=== PATIENT | female | born 1970 | race Caucasian/White ===

== ENCOUNTER 2016-12-04 11:53 | Emergency (ER) | payer BC ==
[2016-12-04] MEDS ORDERED: ASPIRIN 81 MG TABLET, CHEWABLE PO ONE (11:55)
--- NOTE | 2016-12-04 12:01 | ER Document Report ---
ED Medical Screen (RME) - General Stated Complaint: chest pain Time seen by provider: 12:00 Mode of Arrival: Ambulatory Information source: Patient Notes: 46-year-old female presents to ED presents to ED for chest pain that started yesterday. She states that the pain started in the right side of her chest and then radiated over to the left side of her chest. Now the pain is in her left chest radiating up to the left side of her neck and through to her back. She states the pain does come and go at times. I have greeted and performed a rapid initial assessment of this patient. A comprehensive ED assessment and evaluation of the patient, analysis of test results and completion of medical decision making process will be conducted by an additional ED providers. TRAVEL OUTSIDE OF THE [place] IN LAST 30 DAYS: No - Related Data Allergies/Adverse Reactions: No Known Allergies Allergy (Verified 12/04/16 11:55) Past Medical History - Past Medical History Cardiac Medical History: Reports: Hx Hypertension Past Surgical History: Reports: Hx Adenoidectomy, Hx Cholecystectomy, Hx Tonsillectomy - Immunizations Immunizations up to date: Yes Hx Diphtheria, Pertussis, Tetanus Vaccination: Yes
[2016-12-04] MEDS ORDERED: NITROGLYCERIN 2% OINTMENT 1 GM PACKET TP ONE (12:19)
--- NOTE | 2016-12-04 12:24 | ER Document Report ---
ED General - General Chief Complaint: Chest Pain > 30 Stated Complaint: chest pain Time seen by provider: 12:21 Mode of Arrival: Ambulatory Information source: Patient Notes: 46-year-old female complains about right upper chest aching discomfort at rest that began last night lasted for less than an hour and resolved. Later that night she had midsternal chest heaviness that again came on at rest and resolved after an hour and this morning noted aching discomfort in the left chest which she says it resolved at time of arrival here. He reports a sensation of shortness of breath with all 3 of these episodes but denies any diaphoresis nausea or vomiting. Patient reports she had a stress test one year ago through her primary care physician Dr. Willis because of the different type of chest discomfort but that workup and also Doppler studies of her lower extremities were negative. Patient reported a nonproductive cough last week since resolved. She denies fever, chills, earache, sore throat, abdominal pain , back pain, hematemesis, hematochezia, melena, pain numbness weakness or swelling to extremities. Brother had [place] at 34 and father has a pacemaker. Patient reports history of hypertension. She is a current smoker. She reports no recent travel history or immobilization Physical Exam: General: Alert, appears well. HEENT: Normocephalic. Atraumatic. PERRLA. Extraocular movements intact. Oropharynx clear. Neck: Supple. Non-tender. No JVD Respiratory: No respiratory distress. Clear and equal breath sounds bilaterally. Nontender to palpation Cardiovascular: Regular rate and rhythm. Abdominal: Normal Inspection. Soft, non-tender. No distension. Normal Bowel Sounds. Back: Non-tender. No deformity or step off. Extremities: Moves all four extremities. Upper extremities: Normal inspection. Non-tender. Normal color. Normal ROM. Normal temperature. Lower extremities: Normal inspection. Non-tender. No edema. Normal color. Normal ROM. Normal temperature. Neurological: Cranial nerves III-XII grossly intact bilaterally. Strength 5/5 throughout. Sensation intact to light touch. Normal cognition. AAOx4. Normal speech. Psychological: Normal affect. Normal Mood. Skin: Warm. Dry. Normal color. TRAVEL OUTSIDE OF THE [place] IN LAST 30 DAYS: No - Related Data Allergies/Adverse Reactions: No Known Allergies Allergy (Verified 12/04/16 11:55) Past Medical History - General Information source: Patient - Social History Smoking Status: Current Every Day Smoker Chew tobacco use (# tins/day): Yes Frequency of alcohol use: None Drug Abuse: None Family History: CAD, Hyperlipidemia, Hypertension Patient has suicidal ideation: No Patient has homicidal ideation: No - Past Medical History Cardiac Medical History: Reports: Hx Hypertension Renal/ Medical History: Denies: Hx Peritoneal Dialysis Past Surgical History: Reports: Hx Adenoidectomy, Hx Cholecystectomy, Hx Tonsillectomy - Immunizations Immunizations up to date: Yes Hx Diphtheria, Pertussis, Tetanus Vaccination: Yes Review of Systems - Review of Systems Constitutional: See HPI EENT: denies: Ear pain, Throat pain Cardiovascular: See HPI Respiratory: See HPI Gastrointestinal: See HPI Genitourinary: denies: Burning, Dysuria Musculoskeletal: denies: Back pain Skin: denies: Rash Hematologic/Lymphatic: denies: Swollen glands Neurological/Psychological: denies: Weakness, Numbness Physical Exam - Vital signs Vitals: Temp Pulse Resp BP Pulse Ox 98.2 F 111 H 16 158/93 H 98 12/04/16 12:08 12/04/16 12:08 12/04/16 12:08 12/04/16 12:08 12/04/16 12:08 Course - Re-evaluation Re-evalutation: 12/04/16 14:20 Patient has remained pain-free during her stay in emergency department. She does have multiple risk factors for acute coronary syndrome and has not had a stress test over a year. Dr. baig hospitalist service request patient be placed on telemetry observation. My index of suspicion for pulmonary embolism and thoracic aortic dissection or other thoracic pathology is low - Vital Signs Vital signs: Temp Pulse Resp BP Pulse Ox 98.2 F 94 18 128/71 H 97 12/04/16 12:08 12/04/16 12:42 12/04/16 13:01 12/04/16 13:01 12/04/16 13:01 - Laboratory Result Diagrams: 12/04/16 12:45 12/04/16 12:45 Laboratory results interpreted by me: 12/04/16 12/04/16 12:45 12:45 RDW 14.2 H Carbon Dioxide 21 L BUN 21 H Creatine Kinase 167 H - Diagnostic Test Radiology reviewed: Image reviewed, Reports reviewed - EKG Interpretation by Me Additional EKG results interpreted by me: 12/04/16 12:24 EKG reviewed by myself shows sinus tachycardia at 100 with no acute changes Discharge - Discharge Clinical Impression: Chest pain Qualifiers: Chest pain type: precordial pain Qualified Code(s): R07.2 - Precordial pain Condition: Fair Disposition: ADMITTED OBSERVATION Admitting Provider: Hospitalist Unit Admitted: Telemetry
[2016-12-04 13:08] LABS: ABSOLUTE BASOPHILS # (AUTO) 0.1 10^3/uL (0.0-0.2); ABSOLUTE EOSINOPHILS # (AUTO) 0.1 10^3/uL (0.0-0.6); ABSOLUTE LYMPHOCYTES (AUTO) 3.3 10^3/uL (0.5-4.7); ABSOLUTE MONOCYTES (AUTO) 0.6 10^3/uL (0.1-1.4); ABSOLUTE NEUT (AUTO) 4.5 10^3/uL (1.7-8.2); BASOPHILS % (AUTO) 0.7 % (0-2); EOSINOPHILS % (AUTO) 1.4 % (0-6); HEMATOCRIT 39.9 % (36.0-47.0); HEMOGLOBIN 12.8 g/dL (12.0-15.5); HGB HCT DIFFERENCE -1.5; LYMPHOCYTES % (AUTO) 38.5 % (13-45); MEAN CORPUSCULAR HEMOGLOBIN 28.8 pg (27.0-33.4); MEAN CORPUSCULAR VOLUME 90 fl (80-97); MONOCYTES % (AUTO) 7.3 % (3-13); RED BLOOD COUNT 4.43 10^6/uL (3.72-5.28); RED CELL DISTRIBUTION WIDTH 14.2 % (11.5-14.0); SEGMENTED NEUTROPHILS % (AUTO) 52.1 % (42-78); WHITE BLOOD COUNT 8.7 10^3/uL (4.0-10.5)
[2016-12-04 13:11] LABS: PARTIAL THROMBOPLASTIN TIME 29.6 SEC (23.5-35.8); PROTHROMBIN TIME 12.6 SEC (11.4-15.4)
[2016-12-04 13:26] LABS: ALANINE AMINOTRANSFERASE 30 U/L (9-52); ALBUMIN 4.5 g/dL (3.5-5.0); ALKALINE PHOSPHATASE 66 U/L (38-126); ANION GAP 14 (5-19); ASPARTATE AMINO TRANSFERASE 18 U/L (14-36); BILIRUBIN,TOTAL 0.5 mg/dL (0.2-1.3); BLOOD UREA NITROGEN 21 mg/dL (7-20); CALCIUM 9.7 mg/dL (8.4-10.2); CARBON DIOXIDE 21 mmol/L (22-30); CHLORIDE 105 mmol/L (98-107); CREATINE KINASE 167 U/L (30-135); CREATININE RESULT 0.87 mg/dL (0.52-1.25); GLUCOSE 89 mg/dL (75-110); LIPASE 68.8 U/L (23-300); MAGNESIUM 1.9 mg/dL (1.6-2.3); POTASSIUM 4.3 mmol/L (3.6-5.0); SODIUM 139.6 mmol/L (137-145); TOTAL PROTEIN 7.2 g/dL (6.3-8.2)
[2016-12-04 13:38] LABS: TROPONIN I < 0.012 ng/mL
[2016-12-04 16:11] LABS: CHOLESTEROL 225.47 mg/dL (0-200); Direct HDL 32 mg/dL (>40); TRIGLYCERIDES 298 mg/dL (<150)
[2016-12-04 16:21] LABS: DIRECT LDL 138 mg/dL (<100)
[2016-12-04 16:24] LABS: VLDL CHOLESTEROL 59.6 mg/dL (10-31)
--- NOTE | 2016-12-04 17:44 | PDOC CONSULTATION ---
History of Present Illness Admission Date/PCP: 12/04/16 15:21 JOHN SATURNINO Patient complains of: chest pain History of Present Illness: ADAN CARRANZA is a 46 year old female complains about right upper chest aching discomfort at rest that began last night lasted for less than an hour and resolved. Later that night she had midsternal chest heaviness that again came on at rest and resolved after an hour and this morning noted aching discomfort in the left chest which she says it resolved at time of arrival here. He reports a sensation of shortness of breath with all 3 of these episodes but denies any diaphoresis nausea or vomiting. Patient reports she had a stress test one year ago through her primary care physician Dr. Hollingsworth because of the different type of chest discomfort but that workup and also Doppler studies of her lower extremities were negative. Patient reported a nonproductive cough last week since resolved. She denies fever, chills, earache, sore throat, abdominal pain, back pain, hematemesis, hematochezia, melena, pain numbness weakness or swelling to extremities. Brother had [place] at 34 and father has a pacemaker. Patient reports history of hypertension. She is a current smoker. She reports no recent travel history or immobilization Past Medical History Cardiac Medical History: Reports: Hypertension, Other - stress test 2014 Dr Kolb's office reported negative Past Surgical History Past Surgical History: Reports: Adenoidectomy, Cholecystectomy, Tonsillectomy Social History Smoking Status: Current Every Day Smoker - Advance Directive Resuscitation Status: Full Code Surrogate healthcare decision maker:: Family History Family History: CAD, Hyperlipidemia, Hypertension Parental Family History Reviewed: Yes - father cardiac issues/ pacemaker Children Family History Reviewed: No Sibling(s) Family History Reviewed.: Yes - brother [place] age 35 Medication/Allergy Home Medications: Lisinopril/Hydrochlorothiazide [Lisinopril-Hctz 20-12.5 mg Tab] 1 each PO DAILY 12/04/16 Metformin HCl [Glucophage] 500 mg PO DAILY 12/04/16 Allergies/Adverse Reactions: No Known Allergies Allergy (Verified 12/04/16 11:55) Review of Systems Constitutional: ABSENT: chills, fever(s), headache(s), weight gain, weight loss Eyes: ABSENT: visual disturbances Ears: ABSENT: hearing changes Cardiovascular: PRESENT: as per HPI, chest pain. ABSENT: dyspnea on exertion, edema, orthropnea, palpitations Respiratory: ABSENT: cough, hemoptysis Gastrointestinal: ABSENT: abdominal pain, constipation, diarrhea, hematemesis, hematochezia, nausea, vomiting Genitourinary: ABSENT: dysuria, hematuria Musculoskeletal: ABSENT: joint swelling Integumentary: ABSENT: rash, wounds Neurological: ABSENT: abnormal gait, abnormal speech, confusion, dizziness, focal weakness, syncope Psychiatric: ABSENT: anxiety, depression, homidical ideation, suicidal ideation Endocrine: ABSENT: cold intolerance, heat intolerance, polydipsia, polyuria Hematologic/Lymphatic: ABSENT: easy bleeding, easy bruising Physical Exam Vital Signs: Temp Pulse Resp BP Pulse Ox 98.2 F 94 23 H 117/74 98 12/04/16 12:08 12/04/16 12:42 12/04/16 16:01 12/04/16 16:01 12/04/16 16:01 General appearance: PRESENT: no acute distress, well-developed, well-nourished Head exam: PRESENT: atraumatic, normocephalic Eye exam: PRESENT: conjunctiva pink, EOMI, PERRLA. ABSENT: scleral icterus Ear exam: PRESENT: normal external ear exam Mouth exam: PRESENT: moist, tongue midline Neck exam: ABSENT: carotid bruit, JVD, lymphadenopathy, thyromegaly Respiratory exam: PRESENT: clear to auscultation yaa. ABSENT: rales, rhonchi, wheezes Cardiovascular exam: PRESENT: RRR. ABSENT: diastolic murmur, rubs, systolic murmur Pulses: PRESENT: normal dorsalis pedis pul Vascular exam: PRESENT: normal capillary refill GI/Abdominal exam: PRESENT: normal bowel sounds, soft. ABSENT: distended, guarding, mass, organolmegaly, rebound, tenderness Rectal exam: PRESENT: deferred Extremities exam: PRESENT: full ROM. ABSENT: calf tenderness, clubbing, pedal edema Neurological exam: PRESENT: alert, awake, oriented to person, oriented to place , oriented to time, oriented to situation, CN II-XII grossly intact. ABSENT: motor sensory deficit Psychiatric exam: PRESENT: appropriate affect, normal mood. ABSENT: homicidal ideation, suicidal ideation Skin exam: PRESENT: dry, intact, warm. ABSENT: cyanosis, rash Results Laboratory Results: 12/04/16 12:45 12/04/16 12:45 MCV 90 fl (80-97) 12/04/16 12:45 MCH 28.8 pg (27.0-33.4) 12/04/16 12:45 MCHC 32.0 g/dL (32.0-36.0) 12/04/16 12:45 RDW 14.2 % (11.5-14.0) H 12/04/16 12:45 Seg Neutrophils % 52.1 % (42-78) 12/04/16 12:45 Lymphocytes % 38.5 % (13-45) 12/04/16 12:45 Monocytes % 7.3 % (3-13) 12/04/16 12:45 Eosinophils % 1.4 % (0-6) 12/04/16 12:45 Basophils % 0.7 % (0-2) 12/04/16 12:45 Absolute Neutrophils 4.5 10^3/uL (1.7-8.2) 12/04/16 12:45 Absolute Lymphocytes 3.3 10^3/uL (0.5-4.7) 12/04/16 12:45 Absolute Monocytes 0.6 10^3/uL (0.1-1.4) 12/04/16 12:45 Absolute Eosinophils 0.1 10^3/uL (0.0-0.6) 12/04/16 12:45 Absolute Basophils 0.1 10^3/uL (0.0-0.2) 12/04/16 12:45 Chloride 105 mmol/L (98-107) 12/04/16 12:45 Carbon Dioxide 21 mmol/L (22-30) L 12/04/16 12:45 Anion Gap 14 (5-19) 12/04/16 12:45 Est GFR ( Amer) > 60 (>60) 12/04/16 12:45 Est GFR (Non-Af Amer) > 60 (>60) 12/04/16 12:45 Glucose 89 mg/dL (75-110) 12/04/16 12:45 Calcium 9.7 mg/dL (8.4-10.2) 12/04/16 12:45 Magnesium 1.9 mg/dL (1.6-2.3) 12/04/16 12:45 Total Bilirubin 0.5 mg/dL (0.2-1.3) 12/04/16 12:45 AST 18 U/L (14-36) 12/04/16 12:45 ALT 30 U/L (9-52) 12/04/16 12:45 Alkaline Phosphatase 66 U/L (38-126) 12/04/16 12:45 Total Protein 7.2 g/dL (6.3-8.2) 12/04/16 12:45 Albumin 4.5 g/dL (3.5-5.0) 12/04/16 12:45 Triglycerides 298 mg/dL (<150) H 12/04/16 12:45 Cholesterol 225.47 mg/dL (0-200) H 12/04/16 12:45 LDL Cholesterol Direct 138 mg/dL (<100) H 12/04/16 12:45 VLDL Cholesterol 59.6 mg/dL (10-31) H 12/04/16 12:45 HDL Cholesterol 32 mg/dL (>40) L 12/04/16 12:45 Lipase 68.8 U/L (23-300) 12/04/16 12:45 12/04/16 12/04/16 12:45 12:45 Creatine Kinase 167 H CK-MB (CK-2) 0.40 Troponin I < 0.012 Impressions: Chest X-Ray 12/04/16 12:19 IMPRESSION: NO ACUTE RADIOGRAPHIC FINDING IN THE CHEST. Chest/Abdomen CTA 12/04/16 15:35 IMPRESSION: NORMAL CTA OF THE CHEST. NO PULMONARY EMBOLI. Assessment & Plan - Diagnosis (1) Hyperlipidemia Is this a current diagnosis for this admission?: Yes (2) Chest pain Qualifiers: Chest pain type: precordial pain Qualified Code(s): R07.2 - Precordial pain Is this a current diagnosis for this admission?: Yes
[2016-12-04] MEDS ORDERED: ACETAMINOPHEN 325 MG TABLET PO ONE (18:10)
[2016-12-04 18:54] VITALS: BP 116/67
--- NOTE | 2016-12-04 19:05 | EKG REPORT ---
SEVERITY:- ABNORMAL ECG - SINUS TACHYCARDIA ABNRM R PROG, CONSIDER ASMI OR LEAD PLACEMENT : Confirmed by: Ok Raymond MD 04-Dec-2016 19:04:36
== END 2016-12-04 18:55 | disposition home or self-care (01) ==
LOC: ER 11:53 → UNDOADMOB 15:21 → EH 15:21 → UNDODISOB 18:55
DX: R07.2 Precordial pain (principal); E78.5 Hyperlipidemia, unspecified; R07.9 Chest pain, unspecified; R06.02 Shortness of breath; M54.9 Dorsalgia, unspecified; I10 Essential (primary) hypertension; F17.220 Nicotine dependence, chewing tobacco, uncomplicated; Z90.49 Acquired absence of other specified parts of digestive tract
CPT/HCPCS: 36415; 71010; 71275; 80053; 80061; 82550; 82553; 83690; 83735; 84484; 85025; 85610; 85730; 93005; 93010; 99285

== ENCOUNTER 2017-12-27 08:26 | Emergency (ER) | payer BC ==
[2017-12-27] MEDS ORDERED: ASPIRIN 81 MG TABLET, CHEWABLE PO ONE (08:38)
--- NOTE | 2017-12-27 09:01 | ER Document Report ---
ED General - General Chief Complaint: Chest Pain Stated Complaint: CHEST PAIN/PRESSURE Time Seen by Provider: 12/27/17 08:38 Mode of Arrival: Ambulatory Information source: Patient Notes: 47-year-old female with family history of [place] brother at 34 presents with complaints of chest pressure sensation on the right side veins are back. Patient denies any fevers or chills denies any nausea vomiting or diarrhea. Patient notes symptoms have been on and off for the past week worsened this morning. Patient took aspirin prior to arrival patient had previous similar episode one year ago did not have a stress test at that time TRAVEL OUTSIDE OF THE [place] IN LAST 30 DAYS: No - HPI Onset: Just prior to arrival Onset/Duration: Sudden Quality of pain: No pain Severity: Mild Pain Level: 1 Associated symptoms: Chest pain Exacerbated by: Denies Relieved by: Denies Similar symptoms previously: Yes Recently seen / treated by doctor: Yes - Related Data Allergies/Adverse Reactions: No Known Allergies Allergy (Verified 12/04/16 11:55) Past Medical History - Social History Smoking Status: Current Every Day Smoker Cigarette use (# per day): Yes Chew tobacco use (# tins/day): No Smoking Education Provided: No Frequency of alcohol use: Occasional Drug Abuse: None Family History: CAD, Hyperlipidemia, Hypertension Patient has suicidal ideation: No Patient has homicidal ideation: No - Past Medical History Cardiac Medical History: Reports: Hx Hypertension Renal/ Medical History: Denies: Hx Peritoneal Dialysis Past Surgical History: Reports: Hx Adenoidectomy, Hx Cholecystectomy, Hx Tonsillectomy - Immunizations Immunizations up to date: Yes Hx Diphtheria, Pertussis, Tetanus Vaccination: Yes Review of Systems - Review of Systems Notes: REVIEW OF SYSTEMS: CONSTITUTIONAL : Denies fever, chills, or sweats. Denies recent illness. EENT: Denies eye, ear, throat, or mouth pain or symptoms. Denies nasal or sinus congestion or discharge. Denies throat, tongue, or mouth swelling or difficulty swallowing. CARDIOVASCULAR: Admits to right-sided chest pain into the back RESPIRATORY: Denies cough, cold, or chest congestion. Denies shortness of breath, difficulty breathing, or wheezing. GASTROINTESTINAL: Denies abdominal pain or distention. Denies nausea, vomiting , or diarrhea. Denies blood in vomitus, stools, or per rectum. Denies black, tarry stools. Denies constipation. GENITOURINARY: Denies difficulty urinating, painful urination, burning, frequency, blood in urine, or discharge. FEMALE GENITOURINARY: Denies vaginal bleeding, heavy or abnormal periods, irregular periods. Denies vaginal discharge or odor. MUSCULOSKELETAL: Denies back or neck pain or stiffness. Denies joint pain or swelling. SKIN: Denies rash, lesions or sores. HEMATOLOGIC : Denies easy bruising or bleeding. LYMPHATIC: Denies swollen, enlarged glands. NEUROLOGICAL: Denies confusion or altered mental status. Denies passing out or loss of consciousness. Denies dizziness or lightheadedness. Denies headache. Denies weakness or paralysis or loss of use of either side. Denies problems with gait or speech. Denies sensory loss, numbness, or tingling. Denies seizures. PSYCHIATRIC: Denies anxiety or stress. Denies depression, suicidal ideation, or homicidal ideation. ALL OTHER SYSTEMS REVIEWED AND NEGATIVE. PHYSICAL EXAMINATION: GENERAL: Well-appearing, well-nourished and in no acute distress. HEAD: Atraumatic, normocephalic. EYES: Pupils equal round and reactive to light, extraocular movements intact, conjunctiva are normal. ENT: Nares patent, oropharynx clear without exudates. Moist mucous membranes. NECK: Normal range of motion, supple without lymphadenopathy LUNGS: Breath sounds clear to auscultation bilaterally and equal. No wheezes rales or rhonchi. HEART: Regular rate and rhythm without murmurs ABDOMEN: Soft, nontender, nondistended abdomen. No guarding, no rebound. No masses appreciated. Female : deferred Musculoskeletal: Normal range of motion, no pitting or edema. No cyanosis. NEUROLOGICAL: Cranial nerves grossly intact. Normal speech, normal gait. Normal sensory, motor exams PSYCH: Normal mood, normal affect. SKIN: Warm, Dry, normal turgor, no rashes or lesions noted. 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 I explained to her that if symptoms worsen she must return immediately. Patient is very happy with this plan she understands risks and benefits After performing a Medical Screening Examination, I spoke with the patient at length in regards to leaving the hospital against medical advice. I do not believe the patient should leave but the patient is alert oriented x4, understands the risks and benefits of staying and leaving including disability and . Pt understands that he can return at any time for further care and is more than welcome to do so. Pt verbalizes this understanding. - Vital Signs Vital signs: Temp Pulse Resp BP Pulse Ox 97.9 F 108 H 12 113/71 98 12/27/17 08:45 12/27/17 08:45 12/27/17 10:01 12/27/17 10:00 12/27/17 10:01 - Laboratory Result Diagrams: 12/27/17 08:44 12/27/17 08:44 - Diagnostic Test Radiology reviewed: Image reviewed, Reports reviewed - EKG Interpretation by Me EKG shows normal: Sinus rhythm, Noble, Intervals, QRS Complexes Discharge - Discharge Clinical Impression: Chest pain Qualifiers: Chest pain type: unspecified Qualified Code(s): R07.9 - Chest pain, unspecified Hyperlipidemia Qualifiers: Hyperlipidemia type: unspecified Qualified Code(s): E78.5 - Hyperlipidemia, unspecified Condition: Stable Disposition: HOME, SELF-CARE Instructions: Chest Pain of Unclear Cause ([facility]) Additional Instructions: You must follow-up with your physicians or return immediately if there are any other concerns please take aspirin daily until you are cleared by cardiology
--- NOTE | 2017-12-27 09:05 | RADIOLOGY REPORT (SQ) ---
EXAM DESCRIPTION: CHEST SINGLE VIEW COMPLETED DATE/TIME: 12/27/2017 8:56 am REASON FOR STUDY: chest pain COMPARISON: 12/04/2016. EXAM PARAMETERS: NUMBER OF VIEWS: One view. TECHNIQUE: Single frontal radiographic view of the chest acquired. RADIATION DOSE: NA LIMITATIONS: None. FINDINGS: LUNGS AND PLEURA: No opacities, masses or pneumothorax. No pleural effusion. MEDIASTINUM AND HILAR STRUCTURES: No masses. Contour normal. HEART AND VASCULAR STRUCTURES: Heart normal in size. Normal vasculature. BONES: No acute findings. HARDWARE: None in the chest. OTHER: No other significant finding. IMPRESSION: NO ACUTE RADIOGRAPHIC FINDING IN THE CHEST. TECHNICAL DOCUMENTATION: JOB ID: [id number]- All Rights Reserved
[2017-12-27 09:07] LABS: ABSOLUTE BASOPHILS # (AUTO) 0.1 10^3/uL (0.0-0.2); ABSOLUTE EOSINOPHILS # (AUTO) 0.2 10^3/uL (0.0-0.6); ABSOLUTE LYMPHOCYTES (AUTO) 2.9 10^3/uL (0.5-4.7); ABSOLUTE MONOCYTES (AUTO) 0.7 10^3/uL (0.1-1.4); ABSOLUTE NEUT (AUTO) 5.1 10^3/uL (1.7-8.2); BASOPHILS % (AUTO) 0.9 % (0-2); EOSINOPHILS % (AUTO) 1.9 % (0-6); HEMATOCRIT 39.6 % (36.0-47.0); HEMOGLOBIN 13.2 g/dL (12.0-15.5); LYMPHOCYTES % (AUTO) 32.4 % (13-45); MEAN CORPUSCULAR HEMOGLOBIN 29.7 pg (27.0-33.4); MEAN CORPUSCULAR HGB CONC 33.3 g/dL (32.0-36.0); MEAN CORPUSCULAR VOLUME 89 fl (80-97); MONOCYTES % (AUTO) 7.7 % (3-13); PLATELET COUNT 220 10^3/uL (150-450); RED BLOOD COUNT 4.45 10^6/uL (3.72-5.28); RED CELL DISTRIBUTION WIDTH 13.9 % (11.5-14.0); SEGMENTED NEUTROPHILS % (AUTO) 57.1 % (42-78); TOTAL CELLS COUNTED % (AUTO) 100 %; WHITE BLOOD COUNT 8.9 10^3/uL (4.0-10.5)
--- NOTE | 2017-12-27 09:17 | EKG REPORT ---
SEVERITY:- ABNORMAL ECG - SINUS TACHYCARDIA ABNRM R PROG, CONSIDER ASMI OR LEAD PLACEMENT : Confirmed by: Gerardo Kolb 27-Dec-2017 09:16:58
[2017-12-27 09:23] LABS: APPEARANCE,URINE SLIGHTLY-CLOUDY; BILIRUBIN,URINE NEGATIVE (NEGATIVE); COLOR,URINE STRAW; GLUCOSE, URINE NEGATIVE (NEGATIVE); KETONES,URINE NEGATIVE (NEGATIVE); LEUKOCYTE ESTERASE,URINE NEGATIVE (NEGATIVE); NITRITE,URINE NEGATIVE (NEGATIVE); PROTEIN,URINE NEGATIVE (NEGATIVE); URINE SPECIFIC GRAVITY 1.003; UROBILINOGEN,URINE NEGATIVE mg/dL (<2.0)
[2017-12-27 09:29] LABS: ALANINE AMINOTRANSFERASE 33 U/L (9-52); ALBUMIN 4.4 g/dL (3.5-5.0); ALKALINE PHOSPHATASE 55 U/L (38-126); ANION GAP 7 (5-19); ASPARTATE AMINO TRANSFERASE 20 U/L (14-36); BILIRUBIN,DIRECT 0.4 mg/dL (0.0-0.4); BILIRUBIN,TOTAL 0.4 mg/dL (0.2-1.3); BLOOD UREA NITROGEN 14 mg/dL (7-20); CALCIUM 9.8 mg/dL (8.4-10.2); CARBON DIOXIDE 27 mmol/L (22-30); CHLORIDE 104 mmol/L (98-107); CREATINE KINASE 134 U/L (30-135); GLUCOSE 103 mg/dL (75-110); POTASSIUM 4.4 mmol/L (3.6-5.0); SODIUM 138.4 mmol/L (137-145); TOTAL PROTEIN 7.3 g/dL (6.3-8.2)
[2017-12-27 09:40] LABS: CREATINE KINASE MB 0.35 ng/mL (<4.55)
[2017-12-27 09:42] LABS: TROPONIN I < 0.012 ng/mL
[2017-12-27 11:08] VITALS: BP 123/76
== END 2017-12-27 11:10 | disposition home or self-care (01) ==
LOC: ER 08:26
DX: R07.89 Other chest pain (principal); E78.5 Hyperlipidemia, unspecified; I10 Essential (primary) hypertension; F17.210 Nicotine dependence, cigarettes, uncomplicated; Z82.49 Family history of ischemic heart disease and other diseases of the circulatory system
CPT/HCPCS: 36415; 71045; 80053; 81001; 82550; 82553; 84484; 85025; 93005; 93010; 99285

== ENCOUNTER 2017-12-31 14:26 | Emergency (ER) | payer BC ==
--- NOTE | 2017-12-31 16:33 | ER Document Report ---
ED Medical Screen (RME) - General Chief Complaint: Chest Pain Stated Complaint: CHEST PAIN Time Seen by Provider: 12/31/17 16:31 Mode of Arrival: Ambulatory Information source: Patient Notes: 47-year-old female with a family history significant for heart disease who has been experiencing some intermittent chest pain. She try to get into her primary care doctor (Mohan) and was told they did not have any openings TRAVEL OUTSIDE OF THE [place] IN LAST 30 DAYS: No - Related Data Allergies/Adverse Reactions: No Known Allergies Allergy (Verified 12/04/16 11:55) Past Medical History - Social History Chew tobacco use (# tins/day): No Frequency of alcohol use: None Drug Abuse: None - Past Medical History Cardiac Medical History: Reports: Hx Hypertension Renal/ Medical History: Denies: Hx Peritoneal Dialysis Past Surgical History: Reports: Hx Adenoidectomy, Hx Cholecystectomy, Hx Tonsillectomy - Immunizations Immunizations up to date: Yes Hx Diphtheria, Pertussis, Tetanus Vaccination: Yes Physical Exam - Vital signs Vitals: Temp Pulse Resp BP Pulse Ox 98.0 F 106 H 20 130/68 H 96 12/31/17 14:43 12/31/17 14:43 12/31/17 14:43 12/31/17 14:43 12/31/17 14:43 Course - Vital Signs Vital signs: Temp Pulse Resp BP Pulse Ox 98.0 F 106 H 20 130/68 H 96 12/31/17 14:43 12/31/17 14:43 12/31/17 14:43 12/31/17 14:43 12/31/17 14:43
--- NOTE | 2017-12-31 16:50 | ER Document Report ---
ED General - General Chief Complaint: Chest Pain Stated Complaint: CHEST PAIN Time Seen by Provider: 12/31/17 16:31 Mode of Arrival: Ambulatory TRAVEL OUTSIDE OF THE [place] IN LAST 30 DAYS: No - Related Data Allergies/Adverse Reactions: No Known Allergies Allergy (Verified 12/04/16 11:55) Past Medical History - General Information source: Patient - Social History Smoking Status: Current Every Day Smoker Chew tobacco use (# tins/day): No Frequency of alcohol use: None Drug Abuse: None Family History: CAD, Hyperlipidemia, Hypertension Patient has suicidal ideation: No Patient has homicidal ideation: No - Past Medical History Cardiac Medical History: Reports: Hx Hypertension Renal/ Medical History: Denies: Hx Peritoneal Dialysis Past Surgical History: Reports: Hx Adenoidectomy, Hx Cholecystectomy, Hx Tonsillectomy - Immunizations Immunizations up to date: Yes Hx Diphtheria, Pertussis, Tetanus Vaccination: Yes Physical Exam - Vital signs Vitals: Temp Pulse Resp BP Pulse Ox 98.0 F 106 H 20 130/68 H 96 12/31/17 14:43 12/31/17 14:43 12/31/17 14:43 12/31/17 14:43 12/31/17 14:43 Course - Vital Signs Vital signs: Temp Pulse Resp BP Pulse Ox 98.0 F 106 H 20 130/68 H 96 12/31/17 14:43 12/31/17 14:43 12/31/17 14:43 12/31/17 14:43 12/31/17 14:43
--- NOTE | 2017-12-31 16:50 | ER Document Report ---
ED General - General Chief Complaint: Chest Pain Stated Complaint: CHEST PAIN Time Seen by Provider: 12/31/17 16:31 Mode of Arrival: Ambulatory TRAVEL OUTSIDE OF THE [place] IN LAST 30 DAYS: No - HPI Patient complains to provider of: chest pain Notes: Constant chest pain for now 4 days. Pain started Thursday. Had a cardiac evaluation here in the emergency department was initially negative. Discharged home scheduled to follow-up with cardiology on Thursday. Pain is crushing in nature 06/25 constant nothing changed activity with radiation to her bilateral arms. Denies other symptoms - Related Data Allergies/Adverse Reactions: No Known Allergies Allergy (Verified 12/04/16 11:55) Past Medical History - General Information source: Patient - Social History Smoking Status: Current Every Day Smoker Chew tobacco use (# tins/day): No Frequency of alcohol use: None Drug Abuse: None Family History: CAD, Hyperlipidemia, Hypertension Patient has suicidal ideation: No Patient has homicidal ideation: No - Past Medical History Cardiac Medical History: Reports: Hx Hypertension Renal/ Medical History: Denies: Hx Peritoneal Dialysis Past Surgical History: Reports: Hx Adenoidectomy, Hx Cholecystectomy, Hx Tonsillectomy - Immunizations Immunizations up to date: Yes Hx Diphtheria, Pertussis, Tetanus Vaccination: Yes Review of Systems - Review of Systems Constitutional: No symptoms reported EENT: No symptoms reported Cardiovascular: Chest pain Respiratory: No symptoms reported Gastrointestinal: No symptoms reported Genitourinary: No symptoms reported Female Genitourinary: No symptoms reported Musculoskeletal: No symptoms reported Skin: No symptoms reported Hematologic/Lymphatic: No symptoms reported Neurological/Psychological: No symptoms reported Physical Exam - Vital signs Vitals: Temp Pulse Resp BP Pulse Ox 98.0 F 106 H 20 130/68 H 96 12/31/17 14:43 12/31/17 14:43 12/31/17 14:43 12/31/17 14:43 12/31/17 14:43 - Notes Notes: PHYSICAL EXAMINATION: GENERAL: Well-appearing, well-nourished and in no acute distress. HEAD: Atraumatic, normocephalic. EYES: Pupils equal round and reactive to light, extraocular movements intact, sclera anicteric, conjunctiva are normal. ENT: nares patent, oropharynx clear without exudates. Moist mucous membranes. NECK: Normal range of motion, supple without lymphadenopathy LUNGS: Breath sounds clear to auscultation bilaterally and equal. No wheezes rales or rhonchi. HEART: Regular rate and rhythm without murmurs ABDOMEN: Soft, nontender, normoactive bowel sounds. No guarding, no rebound. No masses appreciated. EXTREMITIES: Normal range of motion, no pitting or edema. No cyanosis. NEUROLOGICAL: Cranial nerves grossly intact. Normal speech, normal gait. Normal sensory and motor exams. PSYCH: Normal mood, normal affect. SKIN: Warm, Dry, normal turgor, no rashes or lesions noted. Course - Re-evaluation Re-evalutation: 12/31/17 18:21 47-year-old female presents with almost a week constant chest pain. In indigestion. Intensive workup here is again negative EKG is no ischemic changes chest x-ray unremarkable CAT scan as no acute processes. 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 Return if anything changes. Heart rate much improved now no longer tachycardic pain well controlled without any intervention on our part. - Vital Signs Vital signs: Temp Pulse Resp BP Pulse Ox 98.0 F 106 H 16 156/85 H 98 12/31/17 14:43 12/31/17 14:43 12/31/17 17:07 12/31/17 17:07 12/31/17 17:07 - Laboratory Result Diagrams: 12/31/17 16:39 12/31/17 16:39 Laboratory results interpreted by me: 12/31/17 12/31/17 16:39 16:39 RDW 14.2 H Creatine Kinase 170 H Discharge - Discharge Clinical Impression: Chest pain Qualifiers: Chest pain type: other chest pain Qualified Code(s): R07.89 - Other chest pain ; R07.8 - Other chest pain Condition: Stable Disposition: HOME, SELF-CARE Instructions: Chest Pain of Unclear Cause ([facility]) Additional Instructions: See your PCP, call cardiology [facility]ATE[facility] for stress test
[2017-12-31] MEDS ORDERED: NORMAL SALINE 1000 ML 1,000 ML IV ONE (16:58)
[2017-12-31 17:04] LABS: ABSOLUTE BASOPHILS # (AUTO) 0.1 10^3/uL (0.0-0.2); ABSOLUTE EOSINOPHILS # (AUTO) 0.2 10^3/uL (0.0-0.6); ABSOLUTE LYMPHOCYTES (AUTO) 3.6 10^3/uL (0.5-4.7); ABSOLUTE MONOCYTES (AUTO) 0.8 10^3/uL (0.1-1.4); ABSOLUTE NEUT (AUTO) 5.7 10^3/uL (1.7-8.2); BASOPHILS % (AUTO) 0.7 % (0-2); EOSINOPHILS % (AUTO) 1.5 % (0-6); HEMATOCRIT 39.6 % (36.0-47.0); HEMOGLOBIN 13.5 g/dL (12.0-15.5); LYMPHOCYTES % (AUTO) 35.2 % (13-45); MEAN CORPUSCULAR HEMOGLOBIN 29.9 pg (27.0-33.4); MEAN CORPUSCULAR VOLUME 88 fl (80-97); MONOCYTES % (AUTO) 7.7 % (3-13); PLATELET COUNT 204 10^3/uL (150-450); RED CELL DISTRIBUTION WIDTH 14.2 % (11.5-14.0); SEGMENTED NEUTROPHILS % (AUTO) 54.9 % (42-78); TOTAL CELLS COUNTED % (AUTO) 100 %; WHITE BLOOD COUNT 10.4 10^3/uL (4.0-10.5)
--- NOTE | 2017-12-31 17:18 | RADIOLOGY REPORT (SQ) ---
EXAM DESCRIPTION: CHEST PA/LAT COMPLETED DATE/TIME: 12/31/2017 5:00 pm REASON FOR STUDY: chest pain COMPARISON: 11/24/2016 EXAM PARAMETERS: NUMBER OF VIEWS: two views TECHNIQUE: Digital Frontal and Lateral radiographic views of the chest acquired. RADIATION DOSE: NA LIMITATIONS: none FINDINGS: LUNGS AND PLEURA: No opacities, masses or pneumothorax. No pleural effusion. MEDIASTINUM AND HILAR STRUCTURES: No masses or contour abnormalities. HEART AND VASCULAR STRUCTURES: Heart normal size. No evidence for failure. BONES: No acute findings. HARDWARE: None in the chest. OTHER: No other significant finding. IMPRESSION: NO SIGNIFICANT RADIOGRAPHIC FINDING IN THE CHEST. TECHNICAL DOCUMENTATION: JOB ID: [id number] [place]-72 2010 [employer]- All Rights Reserved
[2017-12-31 17:25] LABS: ALANINE AMINOTRANSFERASE 31 U/L (9-52); ALBUMIN 4.8 g/dL (3.5-5.0); ALKALINE PHOSPHATASE 52 U/L (38-126); ANION GAP 12 (5-19); ASPARTATE AMINO TRANSFERASE 23 U/L (14-36); BILIRUBIN,DIRECT 0.2 mg/dL (0.0-0.4); BILIRUBIN,TOTAL 0.4 mg/dL (0.2-1.3); BLOOD UREA NITROGEN 16 mg/dL (7-20); CALCIUM 9.9 mg/dL (8.4-10.2); CARBON DIOXIDE 26 mmol/L (22-30); CHLORIDE 103 mmol/L (98-107); CREATINE KINASE 170 U/L (30-135); GLUCOSE 90 mg/dL (75-110); POTASSIUM 4.5 mmol/L (3.6-5.0); SODIUM 141.1 mmol/L (137-145); TOTAL PROTEIN 7.2 g/dL (6.3-8.2)
--- NOTE | 2017-12-31 18:25 | RADIOLOGY REPORT (SQ) ---
EXAM DESCRIPTION: CTA CHEST COMPLETED DATE/TIME: 12/31/2017 6:11 pm REASON FOR STUDY: DANIELLE MAIER COMPARISON: 12/04/2016 TECHNIQUE: CT scan of the chest performed using helical scanning technique with dynamic intravenous contrast injection. Images reviewed with lung, soft tissue and bone windows. Reconstructed coronal and sagittal MPR images reviewed. Additional 3 dimensional post-processing performed to develop Maximal Intensity Projection images (CA P). All images stored on PACS. All CT scanners at this facility use dose modulation, iterative reconstruction, and/or weight based d osing when appropriate to reduce radiation dose to as low as reasonably achievable (ALARA). [facility]: Dose Right [facility]: CareDose [facility]: Dose Right [facility]: Teradose 4D [facility]: Hotreader CONTRAST TYPE AND DOSE: contrast/concentration: Isovue 370.00 mg/ml; Total Contrast Delivered: 82.0 ml; Total Saline Delivered: 110.0 ml Contrast bolus optimized for the pulmonary arteries. Not diagnostic for the aorta. RENAL FUNCTION: GFR > 60. RADIATION DOSE: CT Rad equipment meets quality standard of care and radiation dose reduction techniq ues were employed. CTDIvol: 16.5 - 20.4 mGy. DLP: 740 mGy-cm. . LIMITATIONS: None. FINDINGS: LUNGS AND PLEURA: No masses, infiltrates, pneumothorax. No pleural effusions, calcificati ons. AORTA AND GREAT VESSELS: No aneurysm. Contrast bolus not optimized for the aorta. HEART: No pericardial effusion. No significant coronary artery calcifications. PULMONARY ARTERIES: No emboli visualized in the main pulmonary arteries or the segmental branches. HILAR AND MEDIASTINAL STRUCTURES: No identified masses or abnormal nodes. HARDWARE: None in the chest. UPPER ABDOMEN: No significant findings. Limited exam. THYROID AND OTHER SOFT TISSUES: No masses. No adenopathy. BONES: No acute or significant finding. 3D MIPS: Confirm above findings. OTHER: No other significant finding. IMPRESSION: No emboli visualized in the main pulmonary arteries or the segmental branches. No acute findings. COMMENT: Quality ID # [id number]: Final reports with documentation of one or more dose reduction techniques (e.g., Automated exposure control, adjustment of the mA and/or kV according to patient size, use of iterative reconstruction technique) TECHNICAL DOCUMENTATION: JOB ID: [id number] [place]-72 2010 [employer]- All Rights Reserved
[2017-12-31 18:36] VITALS: BP 146/70
--- NOTE | 2018-01-01 11:06 | EKG REPORT ---
SEVERITY:- OTHERWISE NORMAL ECG - SINUS TACHYCARDIA : Confirmed by: Gerardo Kolb 01-Jan-2018 11:04:51
== END 2017-12-31 18:50 | disposition home or self-care (01) ==
LOC: ER 14:26
DX: R07.9 Chest pain, unspecified (principal); I10 Essential (primary) hypertension; F17.200 Nicotine dependence, unspecified, uncomplicated; Z82.49 Family history of ischemic heart disease and other diseases of the circulatory system
CPT/HCPCS: 93005; 99285; 96360; 36415; 82550; 85025; 80053; 84484; 71046; 71275; 93010; J7030

== ENCOUNTER 2019-08-03 10:52 | Emergency (ER) | payer BC ==
--- NOTE | 2019-08-03 11:33 | ER Document Report ---
ED Medical Screen (RME) - General Chief Complaint: Chest Pain Stated Complaint: CHEST PAIN Time Seen by Provider: 08/03/19 11:25 Primary Care Provider: JOHN MATAMOROS MD [Primary Care Provider] - Follow up as needed TRAVEL OUTSIDE OF THE [place] IN LAST 30 DAYS: No - HPI Notes: 08/03/19 11:32 48-year-old female to the emergency department with complaints of midsternal chest pain that radiates through to her back with shortness of breath. She states that she had a similar episode earlier in the week and was seen at [facility]. She is supposed to follow with a hotel maintenance technician tomorrow. She states that this morning about 2 hours ago she began with the chest pain and shortness of breath again. She states that she took 4 baby aspirins prior to arrival. She states that she is a smoker. There is strong family history of coronary artery disease. She has a brother who had a heart attack at age 34. She also relates that her father had a heart attack at 54 and had a pacemaker and recently from another heart attack. She denies any family history of coagulopathy. She denies any recent travel or leg swelling. She is not on oral contraceptives. I performed a medical screening exam on patient and determined she will need further evaluation by lab work and diagnostic imaging. She is Burt taken 4 baby aspirin this morning prior to arrival. Noted that initial vital signs were tachycardic in nature. Thus she cannot be ruled out on PERC score. A d-dimer was ordered as well. Will have patient further evaluated and managed by main side ER provider. - Related Data Allergies/Adverse Reactions: No Known Allergies Allergy (Verified 12/04/16 11:55) Past Medical History - Past Medical History Cardiac Medical History: Reports: Hx Hypertension Renal/ Medical History: Denies: Hx Peritoneal Dialysis Past Surgical History: Reports: Hx Adenoidectomy, Hx Cholecystectomy, Hx Tonsillectomy - Immunizations Immunizations up to date: Yes Hx Diphtheria, Pertussis, Tetanus Vaccination: Yes Physical Exam - Vital signs Vitals: Temp Pulse Resp BP Pulse Ox 97.9 F 108 H 17 154/82 H 98 08/03/19 11:10 08/03/19 11:10 08/03/19 11:10 08/03/19 11:10 08/03/19 11:10 Course - Vital Signs Vital signs: Temp Pulse Resp BP Pulse Ox 97.9 F 108 H 17 154/82 H 98 08/03/19 11:10 08/03/19 11:10 08/03/19 11:10 08/03/19 11:10 08/03/19 11:10 Doctor's Discharge - Discharge Referrals: JOHN MATAMOROS MD [Primary Care Provider] - Follow up as needed
[2019-08-03 11:55] LABS: ABSOLUTE BASOPHILS # (AUTO) 0.1 10^3/uL (0.0-0.2); ABSOLUTE EOSINOPHILS # (AUTO) 0.1 10^3/uL (0.0-0.6); ABSOLUTE LYMPHOCYTES (AUTO) 1.8 10^3/uL (0.5-4.7); ABSOLUTE MONOCYTES (AUTO) 0.5 10^3/uL (0.1-1.4); ABSOLUTE NEUT (AUTO) 7.3 10^3/uL (1.7-8.2); BASOPHILS % (AUTO) 1.3 % (0-2); HEMATOCRIT 40.4 % (36.0-47.0); HEMOGLOBIN 13.9 g/dL (12.0-15.5); LYMPHOCYTES % (AUTO) 18.7 % (13-45); MEAN CORPUSCULAR HEMOGLOBIN 30.7 pg (27.0-33.4); MEAN CORPUSCULAR HGB CONC 34.4 g/dL (32.0-36.0); MEAN CORPUSCULAR VOLUME 89 fl (80-97); MONOCYTES % (AUTO) 4.8 % (3-13); PLATELET COUNT 180 10^3/uL (150-450); RED BLOOD COUNT 4.52 10^6/uL (3.72-5.28); RED CELL DISTRIBUTION WIDTH 13.6 % (11.5-14.0); SEGMENTED NEUTROPHILS % (AUTO) 74.2 % (42-78); TOTAL CELLS COUNTED % (AUTO) 100 %; WHITE BLOOD COUNT 9.8 10^3/uL (4.0-10.5)
--- NOTE | 2019-08-03 12:05 | RADIOLOGY REPORT (SQ) ---
EXAM DESCRIPTION: CHEST SINGLE VIEW COMPLETED DATE/TIME: 08/03/2019 11:54 am REASON FOR STUDY: chest pain, SOB COMPARISON: 12/31/2017 EXAM PARAMETERS: NUMBER OF VIEWS: One view. TECHNIQUE: Single frontal radiographic view of the chest acquired. RADIATION DOSE: NA LIMITATIONS: None. FINDINGS: LUNGS AND PLEURA: No opacities, masses or pneumothorax. No pleural effusion. MEDIASTINUM AND HILAR STRUCTURES: No masses. Contour normal. HEART AND VASCULAR STRUCTURES: Heart normal in size. Normal vasculature. BONES: No acute findings. HARDWARE: None in the chest. OTHER: No other significant finding. IMPRESSION: NO ACUTE RADIOGRAPHIC FINDING IN THE CHEST. TECHNICAL DOCUMENTATION: JOB ID: [id number] [employer] ([employer])- All Rights Reserved Reading location - IP/workstation name: [email or web address]
[2019-08-03 12:11] LABS: ALBUMIN 4.5 g/dL (3.5-5.0); ALKALINE PHOSPHATASE 56 U/L (38-126); ANION GAP 11 (5-19); ASPARTATE AMINO TRANSFERASE 21 U/L (14-36); BILIRUBIN,DIRECT 0.1 mg/dL (0.0-0.4); BILIRUBIN,TOTAL 0.4 mg/dL (0.2-1.3); BLOOD UREA NITROGEN 16 mg/dL (7-20); CALCIUM 9.5 mg/dL (8.4-10.2); CARBON DIOXIDE 24 mmol/L (22-30); CHLORIDE 102 mmol/L (98-107); GLUCOSE 107 mg/dL (75-110); POTASSIUM 3.9 mmol/L (3.6-5.0); TOTAL PROTEIN 7.1 g/dL (6.3-8.2)
--- NOTE | 2019-08-03 12:20 | EKG REPORT ---
SEVERITY:- ABNORMAL ECG - SINUS TACHYCARDIA ABNRM R PROG, CONSIDER ASMI OR LEAD PLACEMENT : Confirmed by: Ok Raymond MD 03-Aug-2019 12:19:49
--- NOTE | 2019-08-03 12:50 | ER Document Report ---
ED General - General Chief Complaint: Chest Pain Stated Complaint: CHEST PAIN Time Seen by Provider: 08/03/19 11:25 Primary Care Provider: JOHN MATAMOROS MD [Primary Care Provider] - Follow up as needed TRAVEL OUTSIDE OF THE [place] IN LAST 30 DAYS: No - HPI Patient complains to provider of: Chest pain Notes: 48-year-old female presents with 6/10 burning chest pain with radiation to her upper back. This pain is intermittent in nature is independent of exertion or exercise. Nothing makes pain better or worse. Patient was seen at an outside hospital approximately 3 days ago for similar symptoms. Patient had emergency department evaluation there including negative troponins, EKG and chest x-ray. Scheduled to see cardiology tomorrow. Patient states she is is very concerned she is having underlying cardiac disease or unstable angina. Her father of a heart attack approximately 3 weeks ago. Her brother also has history of cardiac disease. Patient is currently an everyday smoker. He is trying to quit smoking. - Related Data Allergies/Adverse Reactions: No Known Allergies Allergy (Verified 12/04/16 11:55) Past Medical History - Social History Smoking Status: Current Every Day Smoker Family History: CAD, Hyperlipidemia, Hypertension Patient has suicidal ideation: No Patient has homicidal ideation: No - Past Medical History Cardiac Medical History: Reports: Hx Hypertension Renal/ Medical History: Denies: Hx Peritoneal Dialysis Past Surgical History: Reports: Hx Adenoidectomy, Hx Cholecystectomy, Hx Tonsillectomy - Immunizations Immunizations up to date: Yes Hx Diphtheria, Pertussis, Tetanus Vaccination: Yes Review of Systems - Review of Systems Notes: REVIEW OF SYSTEMS: CONSTITUTIONAL: -fevers, -chills EENT: -eye pain, -difficulty swallowing, -nasal congestion CARDIOVASCULAR: positive chest pain, -syncope. RESPIRATORY: -cough, -SOB GASTROINTESTINAL: -abdominal pain, -nausea, -vomiting, -diarrhea GENITOURINARY: -dysuria, -hematuria MUSCULOSKELETAL: -back pain, -neck pain SKIN: -rash or skin lesions. HEMATOLOGIC: -easy bruising or bleeding. LYMPHATIC: -swollen, enlarged glands. NEUROLOGICAL: -altered mental status or loss of consciousness, -headache, - neurologic symptoms PSYCHIATRIC: -anxiety, -depression. ALL OTHER SYSTEMS REVIEWED AND NEGATIVE. Physical Exam - Vital signs Vitals: Temp Pulse Resp BP Pulse Ox 97.9 F 108 H 17 154/82 H 98 08/03/19 11:10 08/03/19 11:10 08/03/19 11:10 08/03/19 11:10 08/03/19 11:10 - Notes Notes: PHYSICAL EXAMINATION: GENERAL: Well-appearing, well-nourished and in no acute distress. HEAD: Atraumatic, normocephalic. EYES: Pupils equal round and reactive to light, extraocular movements intact, sclera anicteric, conjunctiva are normal. ENT: nares patent, oropharynx clear without exudates. Moist mucous membranes. NECK: Normal range of motion, supple without lymphadenopathy LUNGS: Breath sounds clear to auscultation bilaterally and equal. No wheezes rales or rhonchi. HEART: tachycardia and rhythm without murmurs ABDOMEN: Soft, nontender, normoactive bowel sounds. No guarding, no rebound. No masses appreciated. EXTREMITIES: Normal range of motion, no pitting or edema. No cyanosis. NEUROLOGICAL: Cranial nerves grossly intact. Normal speech, normal gait. Normal sensory and motor exams. PSYCH: Normal mood, normal affect. SKIN: Warm, Dry, normal turgor, no rashes or lesions noted. Course - Re-evaluation Re-evalutation: 08/03/19 13:50 Well-appearing female. No acute distress. EKG is no ischemic changes. Patient has CAT scan chest abdomen pelvis for dissection and pulmonary embolus rule out. All negative although she did have a slightly elevated d-dimer. Remainder of extensive lab work-up unremarkable. This is an outpatient second negative emergency department cardiac work-up in 3 days. Scheduled cardiology tomorrow. Will discharge patient home improved follow-up tomorrow cardiology. Given strict return precautions. 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
--- NOTE | 2019-08-03 13:43 | RADIOLOGY REPORT (SQ) ---
EXAM DESCRIPTION: CTA CHEST; CTA ABDOMEN/PELVIS W WO COMPLETED DATE/TIME: 08/03/2019 1:24 pm REASON FOR STUDY: PE , dissection; dissection CONTRAST TYPE AND DOSE: Omnipaque 350 RENAL FUNCTION: CREATININE 0.78 COMPARISON: None. TECHNIQUE: CT scan of the chest performed using helical scanning technique with dynamic intravenous contrast injection. Delayed imaging was obtained. Images reviewed with lung, soft tissue and bone w indows. Reconstructed coronal and sagittal MPR images reviewed. All images stored on PACS. All CT scanners at this facility use dose modulation, iterative reconstruction, and/or weight based d osing when appropriate to reduce radiation dose to as low as reasonably achievable (ALARA). [facility]: Dose Right [facility]: CareDose [facility]: Dose Right [facility]: Teradose 4D [facility]: CEED Tech RADIATION DOSE: CT Rad equipment meets quality standard of care and radiation dose reduction techniq ues were employed. CTDIvol: NaN mGy. DLP: 0 mGy-cm. . LIMITATIONS: None. FINDINGS: AXILLAE: No adenopathy. CHEST WALL: No masses. No subcutaneous air. LUNGS: No nodules or masses. No pneumothorax. No infiltrates. PLEURA: No effusions. No calcifications. THYROID: No masses or significant asymmetry. HILAR AND MEDIASTINAL STRUCTURES: No identified masses or abnormal nodes. AORTA AND GREAT VESSELS: No aneurysm. No dissection. PULMONARY ARTERIES: No evidence of pulmonary embolus. Normal left to right ventricular ratio. HEART: No pericardial effusion. HARDWARE AND LIFELINES: None. BONES: No significant finding. OTHER: No other significant finding. IMPRESSION: 1. No evidence of pulmonary embolus or acute aortic pathology. 2. No other evidence of acute intrathoracic process. COMPARISON: None. RADIATION DOSE: CT Rad equipment meets quality standard of care and radiation dose reduction techniq ues were employed. CTDIvol: NaN mGy. DLP: 0 mGy-cm. mGy. TECHNIQUE: CT scan of the abdomen and pelvis performed with intravenous and without oral contrast us ing helical scanning technique with dynamic intravenous contrast injection. Images reviewed with cristina g, soft tissue and bone windows. Reconstructed coronal and sagittal MPR images reviewed. Delayed im ages for evaluation of the urinary system also acquired and evaluated. All images stored on PACS. All CT scanners at this facility use dose modulation, iterative reconstruction, and/or weight based d osing when appropriate to reduce radiation dose to as low as reasonably achievable (ALARA). [facility]: Dose Right [facility]: SureCare [facility]: Dose Right [facility]: Teradose 4D [facility]: CEED Tech FINDINGS: LIVER: Normal size. No masses. No dilated ducts. SPLEEN: Normal size. No focal lesions. PANCREAS: No masses. No significant calcifications. No adjacent inflammation or peripancreatic flui d collections. Pancreatic duct not dilated. GALLBLADDER: Surgically absent. ADRENAL GLANDS: No significant masses or asymmetry. RIGHT KIDNEY AND URETER: No solid masses. No significant calcifications. No hydronephrosis or hyd roureter. LEFT KIDNEY AND URETER: No solid masses. No significant calcifications. No hydronephrosis or hydr oureter. AORTA AND VESSELS: No aneurysm. No dissection. Renal arteries, SMA, celiac without stenosis. RETROPERITONEUM: No retroperitoneal adenopathy, hemorrhage or masses. LARGE AND SMALL BOWEL: No dilatation. No masses. No wall thickening. APPENDIX: Normal. ABDOMINAL WALL: No hernia or masses. PERITONEAL CAVITY: No free air. No free fluid. No peritoneal implants or masses. PELVIS: Unremarkable urinary bladder. Bilateral ovarian cysts, largest on the left measuring 3.8 cm. No free fluid or lymphadenopathy. BONES: No acute bony abnormality. No suspicious osseous lesions. Sclerotic focus within the right s acrum, likely bone island. Schmorl's node within the inferior endplate of L3. OTHER: No other significant finding. IMPRESSION: 1. No evidence of acute aortic pathology or other acute intra-abdominal/pelvic process. 2. 3.8 cm cystic lesion within the left ovary, likely benign ovarian cyst. If patient is premenopau hossein no follow-up necessary. If patient is postmenopausal 1 year follow-up US should be considered to ensure stability/resolution. TECHNICAL DOCUMENTATION: JOB ID: [id number] Quality ID # [id number]: Final reports with documentation of one or more dose reduction techniques (e.g., Au tomated exposure control, adjustment of the mA and/or kV according to patient size, use of iterative reconstruction technique) 2010 [employer] ([employer])- All Rights Reserved Reading location - IP/workstation name: [email or web address]-
--- NOTE | 2019-08-03 13:43 | RADIOLOGY REPORT (SQ) ---
EXAM DESCRIPTION: CTA CHEST; CTA ABDOMEN/PELVIS W WO COMPLETED DATE/TIME: 08/03/2019 1:24 pm REASON FOR STUDY: PE , dissection; dissection CONTRAST TYPE AND DOSE: Omnipaque 350 RENAL FUNCTION: CREATININE 0.78 COMPARISON: None. TECHNIQUE: CT scan of the chest performed using helical scanning technique with dynamic intravenous contrast injection. Delayed imaging was obtained. Images reviewed with lung, soft tissue and bone w indows. Reconstructed coronal and sagittal MPR images reviewed. All images stored on PACS. All CT scanners at this facility use dose modulation, iterative reconstruction, and/or weight based d osing when appropriate to reduce radiation dose to as low as reasonably achievable (ALARA). [facility]: Dose Right [facility]: CareDose [facility]: Dose Right [facility]: Teradose 4D [facility]: [employer] RADIATION DOSE: CT Rad equipment meets quality standard of care and radiation dose reduction techniq ues were employed. CTDIvol: NaN mGy. DLP: 0 mGy-cm. . LIMITATIONS: None. FINDINGS: AXILLAE: No adenopathy. CHEST WALL: No masses. No subcutaneous air. LUNGS: No nodules or masses. No pneumothorax. No infiltrates. PLEURA: No effusions. No calcifications. THYROID: No masses or significant asymmetry. HILAR AND MEDIASTINAL STRUCTURES: No identified masses or abnormal nodes. AORTA AND GREAT VESSELS: No aneurysm. No dissection. PULMONARY ARTERIES: No evidence of pulmonary embolus. Normal left to right ventricular ratio. HEART: No pericardial effusion. HARDWARE AND LIFELINES: None. BONES: No significant finding. OTHER: No other significant finding. IMPRESSION: 1. No evidence of pulmonary embolus or acute aortic pathology. 2. No other evidence of acute intrathoracic process. COMPARISON: None. RADIATION DOSE: CT Rad equipment meets quality standard of care and radiation dose reduction techniq ues were employed. CTDIvol: NaN mGy. DLP: 0 mGy-cm. mGy. TECHNIQUE: CT scan of the abdomen and pelvis performed with intravenous and without oral contrast us ing helical scanning technique with dynamic intravenous contrast injection. Images reviewed with cristina g, soft tissue and bone windows. Reconstructed coronal and sagittal MPR images reviewed. Delayed im ages for evaluation of the urinary system also acquired and evaluated. All images stored on PACS. All CT scanners at this facility use dose modulation, iterative reconstruction, and/or weight based d osing when appropriate to reduce radiation dose to as low as reasonably achievable (ALARA). [facility]: Dose Right [facility]: SureCare [facility]: Dose Right [facility]: Teradose 4D [facility]: [employer] FINDINGS: LIVER: Normal size. No masses. No dilated ducts. SPLEEN: Normal size. No focal lesions. PANCREAS: No masses. No significant calcifications. No adjacent inflammation or peripancreatic flui d collections. Pancreatic duct not dilated. GALLBLADDER: Surgically absent. ADRENAL GLANDS: No significant masses or asymmetry. RIGHT KIDNEY AND URETER: No solid masses. No significant calcifications. No hydronephrosis or hyd roureter. LEFT KIDNEY AND URETER: No solid masses. No significant calcifications. No hydronephrosis or hydr oureter. AORTA AND VESSELS: No aneurysm. No dissection. Renal arteries, SMA, celiac without stenosis. RETROPERITONEUM: No retroperitoneal adenopathy, hemorrhage or masses. LARGE AND SMALL BOWEL: No dilatation. No masses. No wall thickening. APPENDIX: Normal. ABDOMINAL WALL: No hernia or masses. PERITONEAL CAVITY: No free air. No free fluid. No peritoneal implants or masses. PELVIS: Unremarkable urinary bladder. Bilateral ovarian cysts, largest on the left measuring 3.8 cm. No free fluid or lymphadenopathy. BONES: No acute bony abnormality. No suspicious osseous lesions. Sclerotic focus within the right s acrum, likely bone island. Schmorl's node within the inferior endplate of L3. OTHER: No other significant finding. IMPRESSION: 1. No evidence of acute aortic pathology or other acute intra-abdominal/pelvic process. 2. 3.8 cm cystic lesion within the left ovary, likely benign ovarian cyst. If patient is premenopau hossein no follow-up necessary. If patient is postmenopausal 1 year follow-up US should be considered to ensure stability/resolution. TECHNICAL DOCUMENTATION: JOB ID: [id number] Quality ID # [id number]: Final reports with documentation of one or more dose reduction techniques (e.g., Au tomated exposure control, adjustment of the mA and/or kV according to patient size, use of iterative reconstruction technique) 2010 [employer]- All Rights Reserved Reading location - IP/workstation name: [email or web address]
[2019-08-03 14:11] VITALS: BP 146/81
== END 2019-08-03 14:10 | disposition home or self-care (01) ==
LOC: ER 10:52
DX: R07.9 Chest pain, unspecified (principal); F17.200 Nicotine dependence, unspecified, uncomplicated; I10 Essential (primary) hypertension; Z90.49 Acquired absence of other specified parts of digestive tract
CPT/HCPCS: 36415; 71045; 71275; 74174; 80053; 83690; 83735; 84484; 85025; 85379; 93005; 93010

== ENCOUNTER 2019-08-06 21:18 | Emergency (ER) | payer BC ==
[2019-08-06] MEDS ORDERED: DIPHENHYDRAMINE HCL 50 MG/ML VIAL IV ONE (21:28)
--- NOTE | 2019-08-06 21:30 | ER Document Report ---
ED Medical Screen (RME) - General Chief Complaint: alleg Stated Complaint: POSSIBLE ALLERGIC REACTION Time Seen by Provider: 08/06/19 21:25 Primary Care Provider: JOHN MATAMOROS MD [Primary Care Provider] - Follow up as needed Mode of Arrival: Ambulatory Information source: Patient Notes: This 48-year-old female presents with possible allergic reaction. She gives history of chest pain back pain for which she was treated for at [facility] with a reflux medication on Thursday. Patient reports that when she took the medication she felt like she was having trouble breathing chest tight. She was evaluated in our emergency department for symptoms on August 03. She reports she stopped taking the reflux medication and took some Benadryl earlier this week. Did not take any of the reflux medications today. She reports her lip started feeling tingly and throat tight approximately 30-40 minutes ago she did take Benadryl prior to arrival. I have greeted and performed a rapid initial assessment of this patient. A comprehensive ED assessment and evaluation of the patient, analysis of test results and completion of the medical decision making process will be conducted by additional ED providers. Dictation of this chart was performed using voice recognition software; therefore, there may be some unintended grammatical errors. TRAVEL OUTSIDE OF THE [place] IN LAST 30 DAYS: No - Related Data Allergies/Adverse Reactions: No Known Allergies Allergy (Verified 12/04/16 11:55) Past Medical History - Past Medical History Cardiac Medical History: Reports: Hx Hypertension Renal/ Medical History: Denies: Hx Peritoneal Dialysis Past Surgical History: Reports: Hx Adenoidectomy, Hx Cholecystectomy, Hx Tonsillectomy - Immunizations Immunizations up to date: Yes Hx Diphtheria, Pertussis, Tetanus Vaccination: Yes Physical Exam - Vital signs Vitals: Temp Pulse Resp BP Pulse Ox 98.1 F 126 H 20 182/95 H 96 08/06/19 21:23 08/06/19 21:23 08/06/19 21:23 08/06/19 21:23 08/06/19 21:23 Course - Vital Signs Vital signs: Temp Pulse Resp BP Pulse Ox 98.1 F 126 H 20 182/95 H 96 08/06/19 21:23 08/06/19 21:23 08/06/19 21:23 08/06/19 21:23 08/06/19 21:23 Doctor's Discharge - Discharge Referrals: JOHN MATAMOROS MD [Primary Care Provider] - Follow up as needed
[2019-08-06 22:05] LABS: ABSOLUTE BASOPHILS # (AUTO) 0.1 10^3/uL (0.0-0.2); ABSOLUTE EOSINOPHILS # (AUTO) 0.3 10^3/uL (0.0-0.6); ABSOLUTE LYMPHOCYTES (AUTO) 4.6 10^3/uL (0.5-4.7); ABSOLUTE MONOCYTES (AUTO) 0.9 10^3/uL (0.1-1.4); ABSOLUTE NEUT (AUTO) 4.2 10^3/uL (1.7-8.2); BASOPHILS % (AUTO) 1.2 % (0-2); EOSINOPHILS % (AUTO) 2.6 % (0-6); HEMATOCRIT 38.5 % (36.0-47.0); HEMOGLOBIN 13.1 g/dL (12.0-15.5); LYMPHOCYTES % (AUTO) 45.6 % (13-45); MEAN CORPUSCULAR HEMOGLOBIN 30.5 pg (27.0-33.4); MEAN CORPUSCULAR VOLUME 90 fl (80-97); PLATELET COUNT 172 10^3/uL (150-450); RED BLOOD COUNT 4.29 10^6/uL (3.72-5.28); SEGMENTED NEUTROPHILS % (AUTO) 41.6 % (42-78); TOTAL CELLS COUNTED % (AUTO) 100 %; WHITE BLOOD COUNT 10.1 10^3/uL (4.0-10.5)
[2019-08-06 22:15] LABS: BLOOD UREA NITROGEN 17 mg/dL (7-20); CALCIUM 9.7 mg/dL (8.4-10.2); GLUCOSE 144 mg/dL (75-110)
[2019-08-06 22:16] LABS: ALKALINE PHOSPHATASE 92 U/L (38-126); ANION GAP 8 (5-19); ASPARTATE AMINO TRANSFERASE 18 U/L (14-36); BILIRUBIN,DIRECT 0.1 mg/dL (0.0-0.4); BILIRUBIN,TOTAL 0.2 mg/dL (0.2-1.3); CARBON DIOXIDE 26 mmol/L (22-30); CHLORIDE 106 mmol/L (98-107); POTASSIUM 3.8 mmol/L (3.6-5.0); TOTAL PROTEIN 6.6 g/dL (6.3-8.2)
--- NOTE | 2019-08-06 22:18 | EKG REPORT ---
SEVERITY:- ABNORMAL ECG - SINUS TACHYCARDIA BORDERLINE INFERIOR Q WAVES ANTERIOR INFARCT, OLD : Confirmed by: Ok Raymond MD 06-Aug-2019 22:18:04
[2019-08-06] MEDS ORDERED: NORMAL SALINE 1000 ML 1,000 ML IV ONE (22:28)
--- NOTE | 2019-08-06 22:43 | ER Document Report ---
ED Allergic Reaction - General Chief Complaint: Allergic Reaction Stated Complaint: POSSIBLE ALLERGIC REACTION Time Seen by Provider: 08/06/19 21:25 Primary Care Provider: JOHN MATAMOROS MD [Primary Care Provider] - Follow up as needed Mode of Arrival: Ambulatory Notes: Patient complains of "allergic reaction" that has gotten worse over the last week. She denies any chest pain. She thinks she may be allergic to a new proton pump inhibitor. She was also recently started on Wellbutrin to stop smoking. She tells me she had a recent CAT scan of the chest last week that was reportedly normal. She is due to see her doctor next week and get a calcium scan. She is anxious because she had a close family member of heart disease in the past month. No rashes. No tongue swelling. She says that 80% of her symptoms go away after she takes the Benadryl. No other complaints at this time. TRAVEL OUTSIDE OF THE [place] IN LAST 30 DAYS: No - Related Data Allergies/Adverse Reactions: No Known Allergies Allergy (Verified 12/04/16 11:55) Past Medical History - General Information source: Patient - Social History Smoking Status: Never Smoker Family History: CAD, Hyperlipidemia, Hypertension Patient has suicidal ideation: No Patient has homicidal ideation: No - Past Medical History Cardiac Medical History: Reports: Hx Hypertension Renal/ Medical History: Denies: Hx Peritoneal Dialysis Past Surgical History: Reports: Hx Adenoidectomy, Hx Cholecystectomy, Hx Tonsillectomy - Immunizations Immunizations up to date: Yes Hx Diphtheria, Pertussis, Tetanus Vaccination: Yes Review of Systems - Review of Systems Constitutional: denies: Chills, Fever -: Yes All other systems reviewed and negative Physical Exam - Vital signs Vitals: Temp Pulse Resp BP Pulse Ox 98.1 F 126 H 20 182/95 H 96 08/06/19 21:23 08/06/19 21:23 08/06/19 21:23 08/06/19 21:23 08/06/19 21:23 - General General appearance: Appears well, Alert In distress: None - HEENT Head: Normocephalic, Atraumatic Eyes: Normal Pupils: PERRL - Respiratory Respiratory status: No respiratory distress Chest status: Nontender Breath sounds: Normal Chest palpation: Normal - Cardiovascular Rhythm: Tachycardia Heart sounds: Normal auscultation Murmur: No - Abdominal Inspection: Normal Distension: No distension Bowel sounds: Normal Tenderness: Nontender Organomegaly: No organomegaly - Back Back: Normal, Nontender - Extremities General upper extremity: Normal inspection, Nontender, Normal color, Normal ROM, Normal temperature General lower extremity: Normal inspection, Nontender, Normal color, Normal ROM, Normal temperature, Normal weight bearing. No: Jenniffer's sign - Neurological Neuro grossly intact: Yes Cognition: Normal Orientation: AAOx4 Lakshmi Coma Scale Eye Opening: Spontaneous Lakshmi Coma Scale Verbal: Oriented Lakshmi Coma Scale Motor: Obeys Commands Lakshmi Coma Scale Total: 15 Speech: Normal Motor strength normal: LUE, RUE, LLE, RLE Sensory: Normal - Psychological Associated symptoms: Normal affect, Normal mood - Skin Skin Temperature: Warm Skin Moisture: Dry Skin Color: Normal Course - Re-evaluation Re-evalutation: 08/06/19 22:44 EKG per me sinus tachycardia at a rate of [address]-T wave changes. Normal R wave axis. 08/07/19 00:20 Patient feels better after IV hydration. HR is 80. Will discharge home. Patient will return at once if worse or new symptoms and follow-up with her own doctor tomorrow for recheck. 08/07/19 00:22 - Vital Signs Vital signs: Temp Pulse Resp BP Pulse Ox 98.1 F 126 H 23 H 117/72 98 08/06/19 21:23 08/06/19 21:23 08/06/19 23:31 08/06/19 23:31 08/06/19 23:31 - Laboratory Result Diagrams: 08/06/19 21:45 08/06/19 21:45 Laboratory results interpreted by me: 08/06/19 08/06/19 21:45 21:45 Lymph % (Auto) 45.6 H Seg Neutrophils % 41.6 L Glucose 144 H Discharge - Discharge Clinical Impression: Allergic reaction Qualifiers: Encounter type: initial encounter Qualified Code(s): T78.40XA - Allergy, unspecified, initial encounter Condition: Stable Disposition: HOME, SELF-CARE Instructions: Acute Allergic Reaction ([facility]) Additional Instructions: Return at once if worse or new symptoms. See your doctor tomorrow for recheck. Referrals: JOHN MATAMOROS MD [Primary Care Provider] - Follow up as needed
[2019-08-07 00:49] VITALS: BP 112/62
== END 2019-08-07 00:48 | disposition home or self-care (01) ==
LOC: ER 21:18
DX: T78.40XA Allergy, unspecified, initial encounter (principal); X58.XXXA Exposure to other specified factors, initial encounter; R00.0 Tachycardia, unspecified; I10 Essential (primary) hypertension
CPT/HCPCS: 93005; 36415; 85025; 80053; 84484; 93010; J7030; 96360; 99283

== ENCOUNTER 2019-08-09 10:25 | Emergency (ER) | payer BC ==
[2019-08-09] MEDS ORDERED: PREDNISONE 20 MG TABLET PO ONE (12:01)
--- NOTE | 2019-08-09 12:08 | ER Document Report ---
HPI - HPI Patient complains to provider of: Allergic reaction Time Seen by Provider: 08/09/19 11:12 Pain Level: Denies Context: 40-year-old female presents the emergency department with concern for allergic reaction. She is been seen here 3 times in the past week and had a full work-up to include CTA chest and abdomen to rule out a PE which was negative. Patient states that she has a sensation in her throat that it is tight and she has in creased work of breathing. Patient is concerned that she has a rash on her bilateral dorsal hands, patient denies any lip or tongue swelling, denies any systemic urticaria, denies any wheezing, denies any other symptoms. - CONSTITUTIONAL Constitutional: DENIES: Fever, Chills - REPRODUCTIVE Reproductive: DENIES: : Past Medical History - Social History Smoking Status: Unknown if Ever Smoked Chew tobacco use (# tins/day): No Frequency of alcohol use: None Drug Abuse: None Family History: CAD, Hyperlipidemia, Hypertension Patient has suicidal ideation: No Patient has homicidal ideation: No - Past Medical History Cardiac Medical History: Reports: Hx Hypertension Renal/ Medical History: Denies: Hx Peritoneal Dialysis Past Surgical History: Reports: Hx Adenoidectomy, Hx Cholecystectomy, Hx Tonsillectomy - Immunizations Immunizations up to date: Yes Hx Diphtheria, Pertussis, Tetanus Vaccination: Yes Vertical Provider Document - CONSTITUTIONAL Notes: PHYSICAL EXAMINATION: Reviewed vital signs and charting by RN GENERAL: Alert, interacts well. No acute distress. HEAD: Normocephalic, atraumatic. EYES: Pupils equal and round. Extraocular movements intact. ENT: Oral mucosa moist, tongue midline. NECK: Full range of motion. Trachea midline. LUNGS: Clear to auscultation bilaterally, no wheezes, no stridor. No respiratory distress. HEART: Regular rhythm and tachycardia with rate 108. No murmur ABDOMEN: soft, non-tender. No distention. Bowel sounds present EXTREMITIES: Moves all 4 extremities spontaneously. No edema, No cyanosis. PSYCH: Normal affect, normal mood. SKIN: Warm, dry, normal turgor. Ecchymosis of the bilateral dorsal hands most likely secondary to IV insertion from previous hospital visits, no urticaria seen - INFECTION CONTROL TRAVEL OUTSIDE OF THE [place] IN LAST 30 DAYS: No Course - Re-evaluation Re-evalutation: 08/09/19 12:10 Patient presents with concern for an allergic reaction. Patient states that she has been taking lisinopril and does have the sensation of scratching in her throat and difficulty swallowing. Patient had a negative work-up here for pulmonary embolism and a negative cardiac work-up at [facility]. After discussing with of regimen him assessing the patient he feels that this might be related to lisinopril and she should immediately stop taking it, and we will put her on a steroid Dosepak. Discussed all this with patient. She does have an appointment with her primary doctor today at [facility] and she will follow-up to discuss medication reconciliation for her antihypertensives. - Vital Signs Vital signs: Temp Pulse Resp BP Pulse Ox 98.4 F 119 H 19 150/82 H 97 08/09/19 10:58 08/09/19 10:58 08/09/19 10:58 08/09/19 10:58 08/09/19 10:58 Discharge - Discharge Clinical Impression: Allergic reaction caused by a drug Qualifiers: Encounter type: initial encounter Qualified Code(s): T78.40XA - Allergy, unspecified, initial encounter Condition: Good Disposition: HOME, SELF-CARE Additional Instructions: You were seen in the emergency department today for probable allergic reaction to your lisinopril. Please no longer take it and you should never take the medicine again. You have received a dose of steroids here in the emergency department today and I given you a prescription for a 5-day burst dose of steroids that you can start taking tomorrow. You should take 3 tablets once daily for 5 days. Also, get Claritin 24-hour intake that once daily as this will help to reduce the histamine reaction. Please ensure that you discuss with your primary physician today and alternative to the lisinopril to manage your hypertension. Please return to the emergency department immediately if you get worsening swelling in your throat, your lips or tongue starts to swell up, you develop that high-pitched inspiratory sound we talked about called stridor, or you have any other concerning symptoms. Prescriptions: Prednisone [Deltasone 20 mg Tablet] 3 tab PO DAILY 5 Days tablet Forms: Return to Work Referrals: JOHN MATAMOROS MD [Primary Care Provider] - Follow up as needed
[2019-08-09 12:18] VITALS: BP 136/77
== END 2019-08-09 12:41 | disposition home or self-care (01) ==
LOC: ER 10:25
DX: R09.89 Other specified symptoms and signs involving the circulatory and respiratory systems (principal); R13.10 Dysphagia, unspecified; T50.905A Adverse effect of unspecified drugs, medicaments and biological substances, initial encounter; R58 Hemorrhage, not elsewhere classified; I10 Essential (primary) hypertension; Z79.899 Other long term (current) drug therapy
CPT/HCPCS: 99283; J7512

== ENCOUNTER 2019-08-12 13:15 | Observation (INO) | payer BC ==
[2019-08-12] MEDS ORDERED: LEVALBUTEROL HCL NEB 1.25 MG/3 ML AMPUL NEB PRN (14:44)
[2019-08-12] MEDS ORDERED: MAG HYDROX/AL HYDROX/SIMETH SUSP 30 ML UDCUP PO PRN (14:44)
[2019-08-12] MEDS ORDERED: ACETAMINOPHEN 325 MG TABLET PO PRN (14:44)
[2019-08-12] MEDS ORDERED: ONDANSETRON HCL INJ/PF 4 MG/2 ML SDV IV PRN (14:44)
[2019-08-12] MEDS ORDERED: DIPHENHYDRAMINE HCL 25 MG CAPSULE PO PRN (14:48)
[2019-08-12] MEDS ORDERED: HYDRALAZINE HCL INJ/PF 20 MG/1 ML SDV IV PRN (14:49)
[2019-08-12] MEDS ORDERED: DIAZEPAM 2 MG TABLET PO PRN (14:50)
[2019-08-12 15:41] LABS: HEMATOCRIT 39.2 % (36.0-47.0); HEMOGLOBIN 13.6 g/dL (12.0-15.5); MEAN CORPUSCULAR HEMOGLOBIN 30.9 pg (27.0-33.4); MEAN CORPUSCULAR HGB CONC 34.7 g/dL (32.0-36.0); MEAN CORPUSCULAR VOLUME 89 fl (80-97); PLATELET COUNT 202 10^3/uL (150-450); RED BLOOD COUNT 4.39 10^6/uL (3.72-5.28); RED CELL DISTRIBUTION WIDTH 13.5 % (11.5-14.0); WHITE BLOOD COUNT 10.7 10^3/uL (4.0-10.5)
[2019-08-12 16:00] LABS: ANION GAP 11 (5-19); BLOOD UREA NITROGEN 9 mg/dL (7-20); CALCIUM 9.3 mg/dL (8.4-10.2); CARBON DIOXIDE 22 mmol/L (22-30); CHLORIDE 103 mmol/L (98-107); GLUCOSE 108 mg/dL (75-110); POTASSIUM 3.8 mmol/L (3.6-5.0)
[2019-08-12 16:17] LABS: NT PRO BNP 58 pg/mL (<125)
[2019-08-12 16:19] LABS: TROPONIN I < 0.012 ng/mL
--- NOTE | 2019-08-12 16:33 | RADIOLOGY REPORT (SQ) ---
EXAM DESCRIPTION: SOFT TISSUE NECK COMPLETED DATE/TIME: 08/12/2019 4:24 pm REASON FOR STUDY: difficulty swallowing/sensation of food bolus COMPARISON: CT chest 08/03/2019 AP chest 08/03/2019 NUMBER OF VIEWS: Two views. TECHNIQUE: AP and lateral radiographic image of the soft tissues of the neck. LIMITATIONS: None. FINDINGS: EPIGLOTTIS: Normal. Contour normal. Aryepiglottic folds normal. PREVERTEBRAL SOFT TISSUES: Normal. No soft tissue swelling. SUBGLOTTIC AREA: Normal. No narrowing. RETROPHARYNGEAL SPACE: Normal. No soft tissue masses. BONES: Mild bony spurring anteriorly at C4-5 and C5-6 LUNG APICES: Normal. OTHER: No radiopaque foreign body. No other significant finding. IMPRESSION: NEGATIVE STUDY OF THE SOFT TISSUES OF THE NECK. TECHNICAL DOCUMENTATION: JOB ID: [id number] [employer]- All Rights Reserved Reading location - IP/workstation name: [email or web address]
--- NOTE | 2019-08-12 16:40 | PDOC H&P ---
History of Present Illness Admission Date/PCP: 08/12/19 13:15 JOHN MATAMOROS MD Patient complains of: rash, dyspnea, reflux symptoms History of Present Illness: ADAN CARRANZA is a 48 year old female with a past medical history of hypertension and obesity who was directly admitted from Dr. Daniels office today with complaint of 1-1/2 weeks of intermittent/waxing and waning numerous symptoms. Patient reports a consistent skin " burning" sensation to her chest occasionally associated with erythema, severe reflux symptoms occasionally with nausea and epigastric pain, flushed sensation, shortness of breath, sensation of throat fullness/food bolus, and rash to her chest and lateral neck. The patient has been seen in [facility] as a ED twice for the same in the past week as well as once at [facility] ED. Prior ED work-ups have included a CTA of the chest, abdomen and pelvis which was benign, multiple EKGs demonstrating sinus tachycardia with abnormal R wave progression, benign chest x-ray, and unremarkable laboratory evaluation. The patient was initially placed on Protonix for reflux symptoms. Her symptoms persisted and so she presented to a different ED where she was instructed to discontinue her lisinopril due to possible angioedema. She was then started on diltiazem; has only had 2 doses, and has since stopped now believing that this is making her symptoms worse. The patient has also intermittently taken [id number]-upixngs medications including Tagamet, Benadryl, Tums. Of note, the patient's father approximately 3 weeks ago. She is noted to be tearful with an anxious disposition. She does admit that she thought perhaps she was having panic attacks, though adamantly states that she does not believe her symptoms to be related to her anxiety and she denies prior mental health history. The patient was seen with her present. She was found resting in bed comfortably on room air. Respirations are noted to be even and unlabored; speaking full sentences without pauses. Past Medical History Cardiac Medical History: Reports: Hypertension Pulmonary Medical History: Reports: None EENT Medical History: Reports: None Neurological Medical History: Reports: None Endocrine Medical History: Reports: Obesity Renal/ Medical History: Reports: None Malignancy Medical History: Reports: None GI Medical History: Reports: None Musculoskeltal Medical History: Reports: None Skin Medical History: Reports: None Psychiatric Medical History: Reports: None Traumatic Medical History: Reports: None Hematology: Reports: None Infectious Medical History: Reports: None Past Surgical History Past Surgical History: Reports: Adenoidectomy, Cholecystectomy, Tonsillectomy Social History Information Source: Patient Lives with: Family Smoking Status: Former Smoker Frequency of Alcohol Use: None Hx Recreational Drug Use: No Hx Prescription Drug Abuse: No - Advance Directive Resuscitation Status: Full Code Surrogate healthcare decision maker:: The patient . Family History Family History: CAD, Hyperlipidemia, Hypertension Parental Family History Reviewed: Yes Children Family History Reviewed: Yes Sibling(s) Family History Reviewed.: Yes Medication/Allergy Home Medications: Atorvastatin Calcium [Lipitor 20 mg Tablet] 20 mg PO QHS #30 tablet 12/04/16 Lisinopril/Hydrochlorothiazide [Lisinopril-Hctz 20-12.5 mg Tab] 1 each PO DAILY 12/04/16 Metformin HCl [Glucophage] 500 mg PO DAILY 12/04/16 Prednisone [Deltasone 20 mg Tablet] 3 tab PO DAILY 5 Days tablet 08/09/19 Allergies/Adverse Reactions: No Known Allergies Allergy (Verified 12/04/16 11:55) Review of Systems Constitutional: PRESENT: fatigue, headache(s). ABSENT: chills, fever(s), weight gain, weight loss Eyes: ABSENT: visual disturbances Ears: ABSENT: hearing changes Cardiovascular: PRESENT: chest pain. ABSENT: dyspnea on exertion, edema, orthropnea, palpitations Respiratory: PRESENT: dyspnea. ABSENT: cough, hemoptysis Gastrointestinal: PRESENT: abdominal pain, bloating, heartburn. ABSENT: constipation, diarrhea, hematemesis, hematochezia, melena, nausea, vomiting Genitourinary: ABSENT: dysuria, hematuria Musculoskeletal: ABSENT: joint swelling Integumentary: ABSENT: rash, wounds Neurological: ABSENT: abnormal gait, abnormal speech, confusion, dizziness, focal weakness, syncope Psychiatric: PRESENT: anxiety. ABSENT: depression, homidical ideation, suicidal ideation Endocrine: ABSENT: cold intolerance, heat intolerance, polydipsia, polyuria Hematologic/Lymphatic: ABSENT: easy bleeding, easy bruising Physical Exam Vital Signs: Temp Pulse Resp BP Pulse Ox 98.6 F 92 14 167/76 H 98 08/12/19 13:39 08/12/19 15:50 08/12/19 15:50 08/12/19 13:39 08/12/19 15:50 Intake & Output 08/11/19 08/12/19 08/13/19 06:59 06:59 06:59 Weight 97.1 kg General appearance: PRESENT: no acute distress, cooperative, obese, well- developed, well-nourished Head exam: PRESENT: atraumatic, normocephalic Eye exam: PRESENT: conjunctiva pink, EOMI, PERRLA. ABSENT: scleral icterus Ear exam: PRESENT: normal external ear exam Mouth exam: PRESENT: moist, tongue midline Neck exam: ABSENT: carotid bruit, JVD, lymphadenopathy, thyromegaly Respiratory exam: PRESENT: clear to auscultation yaa, symmetrical, unlabored. ABSENT: rales, rhonchi, wheezes Cardiovascular exam: PRESENT: RRR, +S1, +S2. ABSENT: diastolic murmur, rubs, systolic murmur Pulses: PRESENT: normal dorsalis pedis pul Vascular exam: PRESENT: normal capillary refill GI/Abdominal exam: PRESENT: normal bowel sounds, soft. ABSENT: distended, guarding, mass, organolmegaly, rebound, tenderness Rectal exam: PRESENT: deferred Extremities exam: PRESENT: full ROM. ABSENT: calf tenderness, clubbing, pedal edema Musculoskeletal exam: PRESENT: ambulatory Neurological exam: PRESENT: alert, awake, oriented to person, oriented to place, oriented to time, oriented to situation, CN II-XII grossly intact. ABSENT: motor sensory deficit Psychiatric exam: PRESENT: anxious, appropriate affect, normal mood. ABSENT: homicidal ideation, suicidal ideation Skin exam: PRESENT: dry, intact, warm. ABSENT: cyanosis, erythema, rash Results Laboratory Results: 08/12/19 14:57 08/12/19 14:57 08/12/19 08/12/19 14:57 14:57 WBC 10.7 H RBC 4.39 Hgb 13.6 Hct 39.2 MCV 89 MCH 30.9 MCHC 34.7 RDW 13.5 Plt Count 202 Sodium 136.0 L Potassium 3.8 Chloride 103 Carbon Dioxide 22 Anion Gap 11 BUN 9 Creatinine 0.72 Est GFR ( Amer) > 60 Glucose 108 Calcium 9.3 Lipase 33.5 08/12/19 14:57 Troponin I < 0.012 NT-Pro-B Natriuret Pep 58 Assessment and Plan - Diagnosis (1) Atypical chest pain Is this a current diagnosis for this admission?: Yes Plan: Patient with atypical chest discomfort; primarily described as reflux-like symptoms but occasionally associated with palpitations and shortness of breath. Risk factors include age, obesity. Heart score relatively low. Patient has had multiple troponins and EKGs over the course of the last week during her ED visits. Repeat EKG today again shows normal sinus rhythm with abnormal R wave progression. She is currently chest pain-free. Initial troponin and BNP are normal. TSH is pending. We will continue to monitor on continuous cardiac telemetry. I believe her symptoms to be a combination of severe GERD and situational anxiety related to recent of immediate family member. We will manage reflux as outlined below. Manage anxiety/grief as outlined below. (2) GERD (gastroesophageal reflux disease) Is this a current diagnosis for this admission?: Yes Plan: Discussed foods to avoid/reflux precautions. Continue Protonix twice daily. Maalox as needed. (3) HTN (hypertension) Is this a current diagnosis for this admission?: Yes Plan: Patient has significant anxiety regarding start of new medication; PCP recommended her to begin diltiazem CD 120 mg once daily earlier this week. She is intermittently taken 2 doses. Previously, emergency department provider had recommended discontinuing lisinopril due to report of throat fullness. We will hold diltiazem at this time. IV hydralazine as needed for blood pressure control. Tomorrow we will discuss with patient medication options; continuing to avoid FRANDY inhibitors as she has significant anxiety regarding the lisinopril at this time. (4) Obesity Is this a current diagnosis for this admission?: Yes Plan: BMI 33.5. Dietary discretion and lifestyle modification are encouraged. (5) Grief reaction Is this a current diagnosis for this admission?: Yes Plan: Continue home dose Lexapro; encouraged patient to consider allowing for dose increased to 20 mg daily. Valium 2 mg as needed for anxiety/agitation. Encouraged rest. (6) Throat fullness Is this a current diagnosis for this admission?: Yes Plan: Patient reports intermittent dyspnea related to throat fullness and difficulty swallowing. TSH is pending. Soft tissue neck pending. - Time Time Spent with patient: 35 or more minutes Medications reviewed and adjusted accordingly: Yes Anticipated discharge: Home Within: within 24 hours
[2019-08-12] MEDS: PANTOPRAZOLE SODIUM 40 MG TABLET.DR PO SCH (16:46)
[2019-08-12] MEDS ORDERED: NORMAL SALINE 1000 ML 1,000 ML IV ONE (17:30)
[2019-08-12] MEDS: HEPARIN SOD (PORCINE) 5,000 UNIT/ML 1 ML VIAL SUBCUT SCH (21:28)
[2019-08-13] MEDS: PANTOPRAZOLE SODIUM 40 MG TABLET.DR PO SCH (05:30)
[2019-08-13] MEDS: HEPARIN SOD (PORCINE) 5,000 UNIT/ML 1 ML VIAL SUBCUT SCH (05:31)
[2019-08-13] MEDS: NORMAL SALINE 1000 ML 1,000 ML IV PRN ×2 (05:31→11:56)
--- NOTE | 2019-08-13 09:08 | EKG REPORT ---
SEVERITY:- ABNORMAL ECG - SINUS RHYTHM ABNRM R PROG, CONSIDER ASMI OR LEAD PLACEMENT : Confirmed by: Gerardo Kolb 13-Aug-2019 09:07:38
[2019-08-13] MEDS ORDERED: ESCITALOPRAM OXALATE 10 MG TABLET PO SCH (10:00)
[2019-08-13] MEDS ORDERED: DILTIAZEM HCL INJ 25 MG/5 ML VIAL IV ONE ×2 (10:03→10:45)
[2019-08-13 10:28] LABS: ABSOLUTE EOSINOPHILS # (AUTO) 0.1 10^3/uL (0.0-0.6); ABSOLUTE LYMPHOCYTES (AUTO) 2.4 10^3/uL (0.5-4.7); ABSOLUTE MONOCYTES (AUTO) 0.5 10^3/uL (0.1-1.4); ABSOLUTE NEUT (AUTO) 3.9 10^3/uL (1.7-8.2); BASOPHILS % (AUTO) 0.7 % (0-2); EOSINOPHILS % (AUTO) 0.8 % (0-6); HEMATOCRIT 37.4 % (36.0-47.0); HEMOGLOBIN 12.7 g/dL (12.0-15.5); LYMPHOCYTES % (AUTO) 34.6 % (13-45); MEAN CORPUSCULAR HEMOGLOBIN 30.5 pg (27.0-33.4); MEAN CORPUSCULAR VOLUME 90 fl (80-97); MONOCYTES % (AUTO) 7.8 % (3-13); PLATELET COUNT 183 10^3/uL (150-450); RED BLOOD COUNT 4.18 10^6/uL (3.72-5.28); RED CELL DISTRIBUTION WIDTH 13.6 % (11.5-14.0); SEGMENTED NEUTROPHILS % (AUTO) 56.1 % (42-78); TOTAL CELLS COUNTED % (AUTO) 100 %; WHITE BLOOD COUNT 6.9 10^3/uL (4.0-10.5)
[2019-08-13 15:36] VITALS: BP 131/60
--- NOTE | 2019-08-13 19:01 | PDOC DISCHARGE SUMMARY ---
Impression - Admit/DC Date/PCP Admission Date/Primary Care Provider: 08/12/19 13:15 JOHN MATAMOROS MD Discharge Date: 08/13/19 - Discharge Diagnosis (1) Atypical chest pain Is this a current diagnosis for this admission?: Yes (2) GERD (gastroesophageal reflux disease) Is this a current diagnosis for this admission?: Yes (3) HTN (hypertension) Is this a current diagnosis for this admission?: Yes (4) Obesity Is this a current diagnosis for this admission?: Yes (5) Grief reaction Is this a current diagnosis for this admission?: Yes (6) Throat fullness Is this a current diagnosis for this admission?: Yes (7) Generalized anxiety disorder Is this a current diagnosis for this admission?: Yes - Additional Information Resuscitation Status: Full Code Discharge Diet: Regular Discharge Activity: Activity As Tolerated, Balance Activity w/Rest Referrals: JOHN MATAMOROS MD [Primary Care Provider] - DUKE XIONG MD [ACTIVE STAFF] - (Outpatient consultation for severe reflux/gerd.) Prescriptions: Buspirone HCl [Buspar 5 mg Tablet] 5 mg PO DAILY #90 tab Diltiazem HCl [Dilacor Xr] 120 mg PO DAILY #1 capsule.cr Escitalopram Oxalate [Lexapro 10 mg Tablet] 10 mg PO DAILY #30 tablet Pantoprazole Sodium [Protonix [address] Tablet] 40 mg PO BID@0600,1700 #60 tablet. Home Medications: Atorvastatin Calcium [Lipitor 20 mg Tablet] 20 mg PO QHS #30 tablet 12/04/16 Metformin HCl [Glucophage] 500 mg PO DAILY 12/04/16 Acetaminophen [Tylenol 325 mg Tablet] 650 mg PO Q4HP PRN tablet 08/13/19 Buspirone HCl [Buspar 5 mg Tablet] 5 mg PO DAILY #90 tab 08/13/19 Diltiazem HCl [Dilacor Xr] 120 mg PO DAILY #1 capsule.cr 08/13/19 Escitalopram Oxalate [Lexapro 10 mg Tablet] 10 mg PO DAILY #30 tablet 08/13/19 Pantoprazole Sodium [Protonix [address] Tablet] 40 mg PO BID@0600,1700 #60 tablet. 08/13/19 History of Present Illiness History of Present Illness: ADAN CARRANZA is a 48 year old female with a past medical history of hypertension and obesity who was directly admitted from Dr. Daniels office today with complaint of 1-1/2 weeks of intermittent/waxing and waning numerous symptoms. Patient reports a consistent skin " burning" sensation to her chest occasionally associated with erythema, severe reflux symptoms occasionally with nausea and epigastric pain, flushed sensation, shortness of breath, sensation of throat fullness/food bolus, and rash to her chest and lateral neck. The patient has been seen in [facility] as a ED twice for the same in the past week as well as once at [facility] ED. Prior ED work-ups have included a CTA of the chest, abdomen and pelvis which was benign, multiple EKGs demonstrating sinus tachycardia with abnormal R wave progression, benign chest x-ray, and unremarkable laboratory evaluation. The patient was initially placed on Protonix for reflux symptoms. Her symptoms persisted and so she presented to a different ED where she was instructed to discontinue her lisinopril due to possible angioedema. She was then started on diltiazem; has only had 2 doses, and has since stopped now believing that this is making her symptoms worse. The patient has also intermittently taken gsjk-nlg-pxckole medications including Tagamet, Benadryl, Tums. Of note, the patient's father approximately 3 weeks ago. She is noted to be tearful with an anxious disposition. She does admit that she thought perhaps she was having panic attacks, though adamantly states that she does not believe her symptoms to be related to her anxiety and she denies prior mental health history. The patient was seen with her present. She was found resting in bed comfortably on room air. Respirations are noted to be even and unlabored; speaking full sentences without pauses. Hospital Course Hospital Course: The patient was admitted to the medical floor and continuous cardiac telemetry for further evaluation of numerous complaints; atypical chest pain, throat ful lness, rash, pruritus, lightheadedness, and anxiety that the patient had attributed to multiple medication allergens over the previous 2 weeks prompting her to be seen in the [facility] ED x1 and [facility] ED x2. Admission EKG demonstrated NSR, Soft tissue of the neck was benign, and laboratory evaluation was unremarkable. CBC revealed leukocytosis (WBCs 10.7, however, patient has been on prednisone therapy for the last several days), chemistry was normal, troponin negative, proBNP negative, TSH normal, lipase normal, sed rate and CRP normal. The patient was found to have persistent tachycardia with heart rate 90-110 while at rest and orthostatic hypotension. The patient was provided IV fluids overnight with resolution of her orthostatic symptoms. All medications were held other than twice daily Protonix. Fortunately, the only PRN medication she required was Maalox which was effective at relieving her chest discomfort. A long discussion was had with the patient to determine the timeline of her symptoms and frequent medication changes. It became clear that her symptoms were entirely unrelated to her medications. The patient had become hyper vigilant with regard to her symptoms and frequently correlated severe reflux with medications; likely due to drinking large volume of water when taking her medications. When reviewing her work-up and my diagnosis of GERD/reflux in combination with anxiety as the precipitating causes of her symptoms, the patient did confirm that she had a history of GERD/PUD, and during an EGD was even found to have an esophageal stricture requiring dilatation which certainly could explain her sensation of throat fullness. Unfortunately, barium swallow studies are not available over the weekend. Discussed with patient recommendations to follow up with GI for further evaluation and referral to Dr. Xiong was provided. She was provided reassurance that I did not feel this to be an acute coronary event, and informed her that at this point in a cardiac work-up, the patient would be considered stable for discharge with outpatient cardiology evaluation/stress testing. Patient did see her [facility] this week and was already determined that further cardiac evaluation, including stress testing, was not necessary or indicated at this time. We discussed the physical manifestations of generalized anxiety and the patient found that she had many similar symptoms. She self reported being "an over- thinker" who does not take time to care for herself resulting in "directing anger at people." Reviewed, in detail, my recommendation for starting Lexapro (antidepressant, anti-anxiety, pre-menopausal symptom management) as well as the side effect profile. We also discussed more immediate acting medications such as xanax, vistaril, and buspar. Patient was agreeable to start of Lexapro and twice daily BuSpar. Prior to discharge, patient took her newly prescribed Diltiazem and was monitored for an additional 2 hours. Fortunately, she did not experience any symptoms during this time and so felt comfortable resuming this medication for management of her HTN. She was discharged to home in stable condition. She was instructed to follow up with her primary care provider within 1 week. She was instructed to continue twice daily protonix and her diltiazem as prescribed; do not start and stop medications without talking with PCP first. Start Lexapro and BuSpar. Discontinue prednisone and benadryl. Cardiac and reflux diet reviewed in detail. Contact Dr. Xiong's office on Thursday to schedule evaluation. Return to the emergency department as needed for concerning symptoms. Physical Exam Vital Signs: Temp Pulse Resp BP Pulse Ox 97.6 F 75 17 131/60 H 98 08/13/19 15:34 08/13/19 15:34 08/13/19 15:34 08/13/19 15:34 08/13/19 15:34 Intake & Output 08/12/19 08/13/19 08/14/19 06:59 06:59 06:59 Intake Total 2456 1062 Balance 2456 1062 Weight 96.7 kg General appearance: PRESENT: no acute distress, cooperative, obese, well- developed, well-nourished Head exam: PRESENT: atraumatic, normocephalic Eye exam: PRESENT: conjunctiva pink, EOMI, PERRLA. ABSENT: scleral icterus Ear exam: PRESENT: normal external ear exam Mouth exam: PRESENT: moist, tongue midline Neck exam: ABSENT: carotid bruit, JVD, lymphadenopathy, thyromegaly Respiratory exam: PRESENT: clear to auscultation yaa. ABSENT: rales, rhonchi, wheezes Cardiovascular exam: PRESENT: RRR. ABSENT: diastolic murmur, rubs, systolic murmur Pulses: PRESENT: normal dorsalis pedis pul Vascular exam: PRESENT: normal capillary refill GI/Abdominal exam: PRESENT: normal bowel sounds, soft. ABSENT: distended, guarding, mass, organolmegaly, rebound, tenderness Rectal exam: PRESENT: deferred Extremities exam: PRESENT: full ROM. ABSENT: calf tenderness, clubbing, pedal edema Neurological exam: PRESENT: alert, awake, oriented to person, oriented to place, oriented to time, oriented to situation, CN II-XII grossly intact. ABSENT: motor sensory deficit Psychiatric exam: PRESENT: anxious, normal mood. ABSENT: homicidal ideation, suicidal ideation Skin exam: PRESENT: dry, intact, warm. ABSENT: cyanosis, rash Results Laboratory Results: WBC 6.9 10^3/uL (4.0-10.5) 08/13/19 10:13 RBC 4.18 10^6/uL (3.72-5.28) 08/13/19 10:13 Hgb 12.7 g/dL (12.0-15.5) 08/13/19 10:13 Hct 37.4 % (36.0-47.0) 08/13/19 10:13 MCV 90 fl (80-97) 08/13/19 10:13 MCH 30.5 pg (27.0-33.4) 08/13/19 10:13 MCHC 34.0 g/dL (32.0-36.0) 08/13/19 10:13 RDW 13.6 % (11.5-14.0) 08/13/19 10:13 Plt Count 183 10^3/uL (150-450) 08/13/19 10:13 Lymph % (Auto) 34.6 % (13-45) 08/13/19 10:13 [place] % (Auto) 7.8 % (3-13) 08/13/19 10:13 Eos % (Auto) 0.8 % (0-6) 08/13/19 10:13 Baso % (Auto) 0.7 % (0-2) 08/13/19 10:13 Absolute Neuts (auto) 3.9 10^3/uL (1.7-8.2) 08/13/19 10:13 Absolute Lymphs (auto) 2.4 10^3/uL (0.5-4.7) 08/13/19 10:13 Absolute Monos (auto) 0.5 10^3/uL (0.1-1.4) 08/13/19 10:13 Absolute Eos (auto) 0.1 10^3/uL (0.0-0.6) 08/13/19 10:13 Absolute Basos (auto) 0.0 10^3/uL (0.0-0.2) 08/13/19 10:13 Seg Neutrophils % 56.1 % (42-78) 08/13/19 10:13 ESR 18 mm/hr (0-20) 08/12/19 14:57 Sodium 136.0 mmol/L (137-145) L 08/12/19 14:57 Potassium 3.8 mmol/L (3.6-5.0) 08/12/19 14:57 Chloride 103 mmol/L (98-107) 08/12/19 14:57 Carbon Dioxide 22 mmol/L (22-30) 08/12/19 14:57 Anion Gap 11 (5-19) 08/12/19 14:57 BUN 9 mg/dL (7-20) 08/12/19 14:57 Creatinine 0.72 mg/dL (0.52-1.25) 08/12/19 14:57 Est GFR ( Amer) > 60 (>60) 08/12/19 14:57 Est GFR (MDRD) Non-Af > 60 (>60) 08/12/19 14:57 Glucose 108 mg/dL (75-110) 08/12/19 14:57 Calcium 9.3 mg/dL (8.4-10.2) 08/12/19 14:57 Magnesium 2.2 mg/dL (1.6-2.3) 08/13/19 04:25 Troponin I < 0.012 ng/mL 08/13/19 10:13 C-Reactive Protein < 5.0 mg/L (<10.0) 08/12/19 14:57 NT-Pro-B Natriuret Pep 58 pg/mL (<125) 08/12/19 14:57 Lipase 33.5 U/L (23-300) 08/12/19 14:57 TSH 0.91 uIU/mL (0.47-4.68) 08/12/19 14:57 08/12/19 08/13/19 14:57 10:13 Troponin I < 0.012 < 0.012 NT-Pro-B Natriuret Pep 58 Impressions: Soft Tissue Neck X-Ray 08/12/19 00:00 IMPRESSION: NEGATIVE STUDY OF THE SOFT TISSUES OF THE NECK. Plan Plan of Treatment: The patient is discharged home in stable condition. She is advised to follow-up with her primary care provider within 1 week. She is instructed to continue twice daily Protonix and her diltiazem as was ordered by Dr. Willis. In addition, the patient is provided new prescriptions for Lexapro and twice daily BuSpar. She is encouraged to follow a low-sodium, reflux, diet. She is encouraged to follow-up with Dr. Diane for further evaluation of her GERD/reflux and possible esophageal stricture (history of the same). She is instructed to follow-up with her established [facility] as scheduled. She is encouraged to return to the emergency department as needed for concerning symptoms. Stroke Is this a Stroke Patient?: No Acute Heart Failure - Is this a Heart Failure Patient?: No
== END 2019-08-13 16:00 | disposition home or self-care (01) ==
LOC: 4N 13:15
PROVIDERS: ADMIT Family Medicine; ATTEND Family Medicine
DX: R07.89 Other chest pain (principal); K21.9 Gastro-esophageal reflux disease without esophagitis; I10 Essential (primary) hypertension; E66.9 Obesity, unspecified; R09.89 Other specified symptoms and signs involving the circulatory and respiratory systems; F41.1 Generalized anxiety disorder; R00.0 Tachycardia, unspecified; R42 Dizziness and giddiness; R21 Rash and other nonspecific skin eruption; L29.9 Pruritus, unspecified; D72.829 Elevated white blood cell count, unspecified; R06.00 Dyspnea, unspecified; I95.1 Orthostatic hypotension; R13.10 Dysphagia, unspecified; R53.83 Other fatigue; R51 Headache; Z79.899 Other long term (current) drug therapy; Z63.4 Disappearance and death of family member; Z87.891 Personal history of nicotine dependence; Z82.49 Family history of ischemic heart disease and other diseases of the circulatory system; Z68.33 Body mass index [BMI] 33.0-33.9, adult; Z87.11 Personal history of peptic ulcer disease; Z87.19 Personal history of other diseases of the digestive system; Z98.890 Other specified postprocedural states
CPT/HCPCS: 36415 ×2; 83690; 83735; 84443; 85025; 85027; 85652; 86140; 80048; 84484 ×2; 83880; 70360; 93005; 93010; G0378 ×2; G0379; J1644 ×2; J3490 ×4; J7030 ×2

== ENCOUNTER 2019-09-02 08:27 | Day surgery (SDC) | payer BC ==
[~2019-09-02 08:27] MED LIST: PROPOFOL INJ 200 MG/20 ML VIAL IV ONE
[2019-09-02 09:53] VITALS: BP 160/83
--- NOTE | 2019-09-02 11:52 | Operative Report ---
Operative Report DATE OF SURGERY: 09/02/19 Operative Report: The risks benefits and alternatives of the procedure explained to the patient in detail and informed consent is obtained.A GIF Olympus video scope was inserted into the patient's mouth and hypopharynx, the esophagus is identified intubated and insufflated ,the scope was then advanced through the esophagus stomach and duodenum ,retroflexion maneuver is done ,the esophagus stomach and first and second portions of the duodenum examined. PREOPERATIVE DIAGNOSIS: Gastroesophageal reflux disease, dyspepsia POSTOPERATIVE DIAGNOSIS: Gastritis status post biopsy OPERATION: EGD with biopsy SURGEON: DUKE ESCOBEDO ANESTHESIA: LMAC TISSUE REMOVED OR ALTERED: As noted above. COMPLICATIONS: None. ESTIMATED BLOOD LOSS: None. INTRAOPERATIVE FINDINGS: As noted above. PROCEDURE: Patient tolerated the procedure well. No immediate postprocedure complications are noted. Patient is discharged in good condition. Discharge date 09/02/2019. Discharge diet: Regular. Discharge activity: Regular. 2 to 3-week follow-up to discuss findings. Patient is instructed to call the office or proceed to the emergency room should there be any further problems or questions. Wait on the pathology.
== END 2019-09-02 09:57 | disposition home or self-care (01) ==
LOC: END 08:27
PROVIDERS: ATTEND Internal Medicine Gastroenterology
DX: K29.50 Unspecified chronic gastritis without bleeding (principal); K21.9 Gastro-esophageal reflux disease without esophagitis; R07.89 Other chest pain; Z87.891 Personal history of nicotine dependence; Z79.899 Other long term (current) drug therapy
CPT/HCPCS: 43239; 88305 ×2; 00731; J2704; 731

== ENCOUNTER → 2019-12-26 | Outpatient (CLI) | payer OTHER ==
--- NOTE | 2019-12-26 13:22 | RADIOLOGY REPORT (SQ) ---
EXAM DESCRIPTION: NM GASTRIC EMPTYING STUDY COMPLETED DATE/TIME: 12/26/2019 1:10 pm REASON FOR STUDY: EPIGASTRIC PAIN R10.13 EPIGASTRIC PAIN COMPARISON: None. RADIONUCLIDE AND DOSE: 2.15 millicuries Tc-99 Sulfur Colloid. A wide variety of solid foods have been used. The route of agent administration: Oral. TECHNIQUE: 1 minute serial static imaging performed at time of meal, 1 hour, 2 hours, 3 hours, and 4 hours as needed. Once stomach reaches 90% emptying, the test is complete. Image intensity values pl otted with respect to time with linear regression algorithm. LIMITATIONS: None. FINDINGS: Patient was observed for 4 hours. Immediate post meal serves as baseline. Gastric emptying at 30 minutes was 16.1% Gastric emptying at 60 minutes was 32.2% Gastric emptying at 90 minutes was 48.3%. Gastric emptying at 120 minutes was 64.4%. Gastric emptying at 240 minutes was 100.0%. Normal values: 60 minutes: 30-90% retained. If less than 30%, abnormally rapid emptying. If greater than 90%, delaye d gastric emptying. 120 minutes: <60% retained. If greater than 60%, delayed gastric emptying. 240 minutes: <10% retained. If greater than 10%, delayed gastric emptying. IMPRESSION: 1. NORMAL GASTRIC EMPTYING. TECHNICAL DOCUMENTATION: JOB ID: [id number] [employer]- All Rights Reserved rev-04/02 Reading location - IP/workstation name: [email or web address]
== END ==
LOC: RAD 07:31
PROVIDERS: ATTEND Internal Medicine Gastroenterology
DX: R10.13 Epigastric pain (principal)
CPT/HCPCS: 78264; A9541

== ENCOUNTER → 2020-12-07 | Outpatient (CLI) | payer BC, OTHER ==
--- NOTE | 2020-12-07 09:26 | WOMENS IMAGING REPORT ---
EXAM DESCRIPTION: 3D SCREENING MAMMO BILAT IMAGES COMPLETED DATE/TIME: 12/07/2020 8:58 am REASON FOR STUDY: ROUTINE BILATERAL SCREENING;Z12.31 Z12.31 ENCNTR SCREEN MAMMOGRAM FOR MALIGNANT N EOPLASM OF RUSS COMPARISON: 2014. EXAM PARAMETERS: Views: Standard craniocaudal and mediolateral oblique views of each breast recorded using digital acquisition and breast tomosynthesis. Read with the assistance of CAD. .[facility] - [employer] Version 9.2 LIMITATIONS: None. FINDINGS: No suspicious masses, suspicious calcifications or architectural distortion. No areas of c oncern. IMPRESSION: NEGATIVE MAMMOGRAM. BIRADS 1. BREAST DENSITY: c. The breasts are heterogeneously dense, which may obscure small masses. BIRAD: ASSESSMENT: 1 NEGATIVE RECOMMENDATION: ROUTINE SCREENING COMMENT: The patient has been notified of the results by letter per MQSA requirements. Additional no tification policies are in place for contacting patient with suspicious or incomplete findings. Quality ID #[id number]: The [employer] recommends an annual screening mammogram for women aged 40 years or over. This facility utilizes a reminder system to ensure that all patients receive reminder letters, and/or direct phone calls for appointments. This includes reminders for routine scr eening mammograms, diagnostic mammograms, or other Breast Imaging Interventions when appropriate. Th is patient will be placed in the appropriate reminder system. TECHNICAL DOCUMENTATION: FINDING NUMBER: (1) ASSESSMENT: (1) JOB ID: [id number] 2010 [employer]- All Rights Reserved Reading location - IP/workstation name: [email or web address]
== END ==
LOC: WI 07:54
PROVIDERS: ATTEND Family Medicine
DX: Z12.31 Encounter for screening mammogram for malignant neoplasm of breast (principal)
CPT/HCPCS: 77063; 77067